=== PATIENT | female | born 1980 | race Two or more races ===

== ENCOUNTER 2020-10-18 20:56 | Emergency (ER) | payer OTHER, SELFPAY ==
--- NOTE | 2020-10-18 21:11 | ED.OVERDOSE ---
HPI - Overdose General Chief Complaint: ETOH/Substance Use Stated Complaint: OVERDOSE Time Seen by Provider: 10/18/20 21:11 Source: patient Mode of arrival: EMS Limitations: no limitations History of Present Illness HPI Narrative: Patient snorted 2 bags of heroine to get high, had been sober for 4 years. found her in the kitchen unresponsive. Police gave her 4mg of narcan. Patient now vomiting and shaking. MD complaint: accidental overdose Onset (ago): minute(s) Timing confirmed by: spouse Intent: other (wanted to get high) Context: Accidental Overdose: wanted to get high Treatments Prior to Arrival: narcan Related Data Previous Rx's Medication Instructions Recorded escitalopram oxalate 20 mg tablet 20 mg PO DAILY 90 Days #90 tab 06/28/20 Allergies Allergy/AdvReac Type Severity Reaction Status Date / Time bee pollen [BEE STINGS] Allergy Unknown HIVES Unverified 04/27/20 17:02 Review of Systems Constitutional: Constitutional: Reports no additional constitutional complaints Eyes: Eyes: Reports no additional eye complaints ENT: Denies dizziness Cardiovascular: Cardiovascular: Reports no additional cardiovascular complaints Respiratory: Respiratory: Reports as per HPI Gastrointestinal: Gastrointestinal: Reports no additional gastrointestinal complaints Genitourinary: Genitourinary: Reports no additional female genitourinary complaints Musculoskeletal: Musculoskeletal: Reports no additional musculoskeletal complaints Integumentary/Breasts: Skin/Breast: Denies rash Neurologic: Reports system reviewed and no additional complaints, except as documented, Denies dizziness and Denies Sensory deficit (Neuro) Psychiatric: Psychiatric: Denies anxiety PMFSH Social History Social History Advance Directives: No Advance Directives Information Provided: Yes Physical Exam Vital Signs: Vital Signs: Last Vital Signs Temp 97.6 F 10/18/20 22:02 Pulse 98 10/18/20 22:02 Resp 15 10/18/20 22:02 BP 158/121 H 10/18/20 22:02 Pulse Ox 97 10/18/20 22:02 Body Mass Index 28.3 Const: General: healthy appearing Nutritional Appearance: average body habitus Orientation/consciousness: oriented to person and patient oriented x3 Limitations: no limitations HENMT: Head: Yes normal to inspection Ears: external ears normal General nose exam: Normal external nose present Mouth: Normal oral and palatal mucosa present and oropharynx normal Throat: Yes posterior oropharynx normal Eyes: General: appearance normal, both eyes and all related structures Neck: Other: supple Neck: Yes normal visual inspection Chest: Chest palpation & inspection: normal inspection of the chest Resp: Auscultation: clear to auscultation bilaterally Cardio: Jugular venous distension: no JVD Rate: regular rate Rhythm: regular rhythm Heart sounds: S1 normal heart sound present and S2 normal heart sound present GI: Inspection: Yes normal to inspection Palpation (GI): Soft to palpation, nontender and No hepatosplenomegaly present Auscultation: normal bowel sounds : General: Yes no CVA tenderness Back/Spine/Pelvis: Back: no CVA tenderness Skin: General skin exam: no rashes or lesions noted Neuro: General: oriented to person and patient oriented x3 Cranial nerves: Yes CN's II-XII intact bilaterally Motor exam (neuro): 5/5 motor strength present throughout Sensory Exam: No Sensory deficit (Neuro) Extrem: General: Yes normal to inspection Psych: Appearance: grossly normal Course Course Course Narrative: patient observed for over one hour will dc home, not lethargic MDM - Overdose Differential Diagnosis Differential diagnosis: Likely drug overdose Discharge Plan Discharge Clinical Impression: Accidental heroin overdose Qualifiers: Encounter type: initial encounter Qualified Code(s): T40.1X1A - Poisoning by heroin, accidental (unintentional), initial encounter Patient Disposition: Home, Self-Care Instructions: Opioid Safety (ED), Opioid Use Disorder (ED) Prescriptions: No Action escitalopram oxalate 20 mg tablet 20 mg PO DAILY 90 Days Qty: 90 RF: 4 Referrals: Physician,Unknown [Primary Care Provider] - 2 days
[2020-10-18 21:15] VITALS: BP 139/99; BP 146/100; PULSE 113; PULSE 135; RESP 16; TEMP 37.2; O2SAT 99; BMI 28.3
[2020-10-18 22:02] VITALS: BP 158/121; PULSE 98; RESP 15; TEMP 36.4; O2SAT 97
[2020-10-18] MEDS: Ibuprofen 600 MG TABLET PO (22:32)
[2020-10-18 22:34] VITALS: BP 138/97; PULSE 116; RESP 18; O2SAT 97
[2020-10-18 22:55] VITALS: BP 132/94; PULSE 99; RESP 18; O2SAT 99
== END 2020-10-18 23:02 | disposition home or self-care (01) ==
PROVIDERS: Emergency Provider Emergency Medicine
DX: T40.1X1A Poisoning by heroin, accidental (unintentional), initial encounter (principal); R40.4 Transient alteration of awareness; Y92.010 Kitchen of single-family (private) house as the place of occurrence of the external cause
CPT/HCPCS: 99284

== ENCOUNTER 2025-03-21 05:26 | Inpatient (IN) | payer OTHER, SELFPAY ==
[2025-03-21] VITALS (9 sets, daily range): BP systolic 97–124; BP diastolic 51–90; PULSE 61–107; RESP 16–20; TEMP 36.2–36.6; O2SAT 96–100; BMI 26.0; BMI 30.3
--- NOTE | ~2025-03-21 | US_ITS ---
EXAMINATION: US ABDOMEN LIMITED HISTORY: Transaminitis TECHNIQUE: Real-time grayscale ultrasound imaging of the right upper quadrant was performed and images were reviewed. COMPARISON: There are no prior studies available for comparison. FINDINGS: Liver: The right lobe of the liver measures 21.7 cm in size. The left lobe of the liver measures 12.7 cm in size. The liver demonstrates coarsened increased echotexture, consistent with steatosis. No focal mass or intrahepatic biliary ductal dilatation is identified. There is normal hepatopedal flow in the portal vein. Gallbladder and biliary tree: The gallbladder is unremarkable, without evidence of calculi, wall thickening, or pericholecystic fluid. The technologist reports the patient to be focally tender over the gallbladder. The common bile duct is normal in caliber measuring 4 mm. Right Kidney: The right kidney measures 10.4 cm in length. The right kidney is unremarkable, without evidence of masses, hydronephrosis, or calculi. Pancreas: The pancreas is obscured by bowel gas. Abdominal aorta and inferior vena cava: The visualized portions of the abdominal aorta and inferior vena cava are normal in caliber. There is no free fluid in the right upper quadrant. US/US abdomen limited IMPRESSION: 1. Hepatomegaly and hepatic steatosis. 2. The technologist reports that the patient is focally tender over the gallbladder, of uncertain significance. There is no evidence of cholelithiasis or secondary signs of acute cholecystitis. Clinical correlation is recommended. Electronically signed by: Alexx Saavedra MD 03/21/2025 01:28 PM EDT
[2025-03-21 06:35] LABS: MANUAL DIFF FLAG NO
[2025-03-21 06:36] LABS: Hematocrit 38.4 % (37.0-47.0); Hemoglobin 13.7 g/dl (12.0-16.0); Imm Gran Abs Auto 0.02 X10*3/uL (0.00-0.03); Imm Gran Pct Auto 0.6 % (0.0-0.4); Lymphocytes Absolute Auto 0.4 X10*3/uL (1.2-4.9); Mean Corpuscular HGB Conc 35.7 g/dl (31.0-35.0); Mean Corpuscular Hemoglobin 36.4 pg (27.0-33.0); Mean Corpuscular Volume 102.1 fL (80.0-98.0); NRBC Abs Auto 0.000 X10*3/uL (0.0-0.012); NRBC Pct Auto 0.0 /100WBC (0.0-0.2); Platelet Count 182 X10*3/uL (160-400); Red Blood Count 3.76 X10*6/uL (4.20-5.50); White Blood Count 3.2 X10*3/uL (4.8-10.8)
[2025-03-21 06:55] LABS: Alanine Aminotransferase 157 U/L (0-31); Albumin Level 4.3 g/dL (3.5-5.0); Alkaline Phosphatase 113 U/L (39-117); Anion Gap 27 (12-20); Aspartate Amino Transferase 498 U/L (5-31); Blood Urea Nitrogen 8 mg/dL (9-16); Calcium 9.0 mg/dL (8.4-10.2); Carbon Dioxide 23 mmol/L (22-29); Chloride 96 mmol/L (96-108); Creatinine Clr Calc Pharmacy 87.9; Estimated Glomerular Filt Rate > 60; Magnesium 1.4 mg/dL (1.6-2.6); Potassium 2.7 mmol/L (3.3-5.1); Sodium 143 mmol/L (135-145); Total Protein 7.6 g/dL (6.5-8.0)
--- NOTE | 2025-03-21 07:05 | ED_ITS ---
HPI - General Adult General Chief complaint: General Medical Stated complaint: Hx: Anxiety Time Seen by Provider: 03/21/25 07:02 Source: patient Limitations: no limitations History of Present Illness HPI narrative: This is 44 years old with a alcohol abuse opiate use disorder presented to the emergency department complaining shakiness numbness in the hands. She has been drinking more than usual because she lost the mother, the last drink was about 2 days ago. Denies any fever chills. Onset (ago): day(s) (1) Radiation: non-radiation Severity: moderate Quality: burning Pain Consistency: constant Relieving factors: none Exacerbating factors: none Associated symptoms: weakness Related Data Home Medications ?Medication ?Instructions ?Recorded ?Confirmed clonidine HCl 0.3 mg tablet 0.3 mg PO BEDTIME PRN Gene ral 03/21/25 03/21/25 Anxiety dextroamphetamine-amphetamine 20 20 mg PO TID 03/21/25 03/21/25 mg tablet ferrous sulfate 325 mg (65 mg 325 mg PO DAILY 03/21/25 03/21/25 iron) tablet (iron) propranolol 60 mg tablet 60 mg PO BID PRN Social Anxi ety 03/21/25 03/21/25 sertraline 100 mg tablet 100 mg PO DAILY 03/21/2507/05 topiramate 200 mg tablet 200 mg PO DAILY PRN weight l oss 03/21/25 03/21/25 Allergies Allergy/AdvReac Type Severity Reaction Status Date / Time bee pollen (BEE STINGS) Allergy Unknown HIVES Verified 03/21/25 06:14 Review of Systems 2 Constitutional: Constitutional: Reports fatigue, Reports lethargy and Reports malaise Musculoskeletal: Musculoskeletal: Reports tingling Neurologic: Reports burning sensations, Reports tingling and Reports paresthesias Endocrine: Endocrine: Reports fatigue [facility] Past Medical History [facility] Narrative: Polysubstance abuse, alcohol abuse Medical History (Updated 03/21/25 @ 10:06 by VINICIO Zeng) Depression Anxiety ADHD Family History Family History Mother No problems noted. Father No problems noted. Social History Social History Alcohol intake: never Cigarettes Per Day: 5 Smoked in Last 30 Days: Yes Use of substances other than those prescribed or required for medical reasons: Yes Substance Use Type: Marijuana Advance Directives: No Advance Directives Information Provided: No Patient : No Physical Exam ED Exam Exam: Tremulous and mild distress Vital Signs: Vital Signs - 24 hr 03/21/25 06:13 03/21/25 06:14 03/21/25 07:47 Temperature 97.9 F 97.9 F Pulse Rate 107 H 107 H 106 H Respiratory Rate 20 20 16 Blood Pressure 120/90 H 120/90 H 120/80 Pulse Oximetry 100 100 98 Oxygen Delivery Method Room Air Room Air Room Air BMI result Body Mass Index 26.0 Const General: cooperative Nutritional Appearance: average body habitus Orientation/consciousness: oriented to time HENMT Head: Yes normal to inspection General nose exam: Normal external nose present Face and sinus: Yes normal facial exam Mouth: Normal oral and palatal mucosa present Throat: Yes posterior oropharynx normal Neck Neck: Yes normal visual inspection Chest Chest palpation & inspection: normal inspection of the chest Resp Effort & Inspection: normal respiratory effort Cardio Jugular venous distension: no JVD Rate: regular rate Rhythm: regular rhythm GI Inspection: Yes normal to inspection Palpation (GI): Soft to palpation Auscultation: normal bowel sounds Skin General skin exam: no rashes or lesions noted Rashes: no rashes Wounds: no wounds Neuro General: oriented to time Cranial nerves: Yes CN's II-XII intact bilaterally Gait exam (Neuro): Normal gait present Course Reevaluation(s) Reevaluation #1: FEELING BETTER DISCUSSED THE CASE WITH THE HOSPITALIST STILL A BIT TACHYCARDIC Time: 10:11 Medications Administered Generic Name Dose Route Start Last Admin Trade Name Faustinoq PRN Reason Stop Dose Admin Enoxaparin Sodium 40 mg 03/21/25 11:00 03/21/25 10:38 Enoxaparin Sodium 40 Mg/0.4 Ml Syringe SUBCUT 40 mg Q24H EZEQUIEL Administration Folic Acid 1 mg 03/21/25 10:05 03/21/25 10:37 Folic Acid 1 Mg Tablet PO 03/24/25 10:04 1 mg DAILY EZEQUIEL Administration Potassium Chloride/Sodium Chloride 20 meq in 1,000 mls @ 150 mls/hr 03/21/25 09:00 03/21/25 09:46 Kcl 20 Meq In 0.9 % Sodium Chl IVCONT 150 mls/hr .Q6H40M EZEQUIEL Administration Multivitamins/Vitamin C 1 tab 03/21/25 10:05 03/21/25 10:37 Multivitamin Tablet PO 03/24/25 10:04 1 tab DAILY EZEQUIEL Administration Pantoprazole Sodium 40 mg 03/21/25 10:00 03/21/25 10:38 Pantoprazole Sodium 40 Mg/10 Ml Vial IVPUSH 03/22/25 09:59 40 mg BID@0630,1630 EZEQUIEL Administration Thiamine HCl 100 mg 03/21/25 10:05 03/21/25 10:37 Thiamine Hcl 100 Mg Tablet PO 03/24/25 10:04 100 mg DAILY EZEQUIEL Administration Discontinued Medications Generic Name Dose Route Start Last Admin Trade Name Freq PRN Reason Stop Dose Admin Diazepam 5 mg 03/21/25 07:04 03/21/25 07:39 Diazepam 10 Mg/2 Ml Cartridge IVPUSH 03/21/25 07:05 5 mg STAT STA Administration Magnesium Sulfate 2 gm in 50 mls @ 25 mls/hr 03/21/25 07:03 03/21/25 09:29 Magnesium Sulfate/H2o IV 03/21/25 09:02 Infused ONCE ONE Infusion Lactated Ringer's 1,000 mls @ 999 mls/hr 03/21/25 07:15 03/21/25 09:29 Lr IV 03/21/25 08:15 Infused .Q1H1M EZEQUIEL Infusion Ondansetron HCl 4 mg 03/21/25 08:58 03/21/25 09:45 Ondansetron Hcl 4 Mg/2 Ml Vial IVPUSH 03/21/25 08:59 4 mg ONCE ONE Administration Phenobarbital Sodium 228 mg 03/21/25 10:00 03/21/25 09:53 Phenobarbital Sodium 130 Mg/Ml Im Once IM 03/21/25 10:01 228 mg ONCE ONE Administration Potassium Chloride 40 meq 03/21/25 07:04 03/21/25 07:42 Potassium Chloride Packet 20 Meq Packet PO 03/21/25 07:05 40 meq ONCE ONE Administration Potassium Chloride 40 meq 03/21/25 08:29 03/21/25 08:35 Potassium Chloride Packet 20 Meq Packet PO 03/21/25 08:30 40 meq ONCE ONE Administration Medical Decision Making Medical Decision Making MDM Narrative: Patient is here with tremors in the hands tingling suspect alcohol withdrawal syndrome we will administer IV fluid in the benzodiazepine Differential Diagnosis Differential Diagnoses: The differential diagnosis associated with the presentation includes Alcohol withdrawal/viral syndrome/dehydration Admission/Observation Consideration of admission/observation: Escalation of care including admission/observation considered Lab Data MDM Lab Attestation statement: I reviewed the patient's lab results. 03/21/25 06:30 03/21/25 06:30 Labs: Lab Results 03/21/25 03/21/25 Range/Units 06:30 08:37 WBC 3.2 L (4.8-10.8) X10*3/uL RBC 3.76 L (4.20-5.50) X10*6/uL Hgb 13.7 (12.0-16.0) g/dl Hct 38.4 (37.0-47.0) % MCV 102.1 H (80.0-98.0) fL MCH 36.4 H (27.0-33.0) pg MCHC 35.7 H (31.0-35.0) g/dl RDW 14.8 (11.0-16.0) % Plt Count 182 (160-400) X10*3/uL MPV 9.9 (9.4-12.3) fL Immature Gran % (Auto) 0.6 H (0.0-0.4) % Neut % (Auto) 77.1 H (45-73) % Lymph % (Auto) 13.0 L (20-40) % [place] % (Auto) 9.0 (2-11) % Eos % (Auto) 0.0 (0-4) % Baso % (Auto) 0.3 (0-2) % Lymph # (Auto) 0.4 L (1.2-4.9) X10*3/uL [place] # (Auto) 0.3 (0.1-1.2) X10*3/uL Eos # (Auto) 0.0 (0.0-0.4) X10*3/uL Baso # (Auto) 0.0 (0.0-0.2) X10*3/uL Abs Immat Gran (auto) 0.02 (0.00-0.03) X10*3/uL Absolute Neuts (auto) 2.5 (2.0-8.3) x10*3/uL Absolute Nucleated RBC 0.000 (0.0-0.012) X10*3/uL Nucleated RBC % (auto) 0.0 (0.0-0.2) /100WBC Sodium 143 (135-145) mmol/L Potassium 2.7 L* (3.3-5.1) mmol/L Chloride 96 (96-108) mmol/L Carbon Dioxide 23 (22-29) mmol/L Anion Gap 27 H (12-20) BUN 8 L (9-16) mg/dL Creatinine 0.79 (0.5-1.4) mg/dL Estim Creat Clear Calc 87.9 Estimated GFR > 60 Random Glucose 105 (60-115) mg/dL Calcium 9.0 (8.4-10.2) mg/dL Magnesium 1.4 L* (1.6-2.6) mg/dL Total Bilirubin 2.1 H (0.0-1.0) mg/dL AST 498 H (5-31) U/L ALT 157 H (0-31) U/L Alkaline Phosphatase 113 (39-117) U/L Total Protein 7.6 (6.5-8.0) g/dL Albumin 4.3 (3.5-5.0) g/dL Urine Opiates Screen Not Detected (Not Detect) Ur Buprenorphine Scrn Not Detected (Not Detect) ng/mL Ur Oxycodone Screen Not Detected (Not Detect) ng/mL Urine Methadone Screen Not Detected (Not Detect) ng/mL Urine Fentanyl Screen Not Detected (Not Detect) Ur Barbiturates Screen Not Detected (Not Detect) Ur Phencyclidine Scrn Not Detected (Not Detect) Ur Amphetamines Screen Not Detected (Not Detect) U Benzodiazepines Scrn Not Detected (Not Detect) Urine Cocaine Screen Not Detected (Not Detect) U Marijuana (THC) Screen POSITIVE H (Not Detect) Ethyl Alcohol 15 mg/dL Critical Care Time Critical Care Time Critical Care Time: Yes Total Critical Care Time: 60 Attestation: IV magnesium, phenobarbital IV diazepam for alcohol withdrawal syndrome with hypomagnesemia hypo kalemia anion gap acidosis Discharge Plan Discharge Clinical Impression: Hypomagnesemia, Acute hypokalemia, High anion gap Alcohol withdrawal Qualifiers: Complication of substance-induced condition: uncomplicated Qualified Code(s): F - Alcohol use, unspecified with withdrawal, uncomplicated Patient Disposition: Admitted As Inpatient
[2025-03-21] MEDS: diazePAM 10 MG/2 ML CARTRIDGE 5 MG IVPUSH (07:39)
[2025-03-21] MEDS: Potassium Chloride Packet 20 MEQ PACKET 40 MEQ PO ×2 (07:42→08:35)
[2025-03-21] MEDS: Lactated Ringers 1,000 ML 999 ML IV (07:42)
[2025-03-21] MEDS: Magnesium Sulfate/H2O 2 GM/50 ML PIGGYBACK IV (07:42)
[2025-03-21 09:06] LABS: Cannabinoid Screen Urine POSITIVE (Not Detect)
--- NOTE | 2025-03-21 09:20 | P.HPHOSP_ITS ---
History of Present Illness Date of Service: 03/21/25 Attending physician on admission: Luis Alberto Cordero Chief Complaint: Clenched fists Pt is a 44-year-old female with a PMH significant for alcohol use disorder, anxiety, and depression?who presents to the ED with?clenched fists and muscle aches and numbness. Pt reports she was awoken at 05:00 this morning and found that her hands were clenched and she was unable to open them. Also experienced numbness and tingling in both extremities, increased anxiety, all-over muscle cramps, tremors, and diaphoresis. Some nausea and vomiting, no significant abdominal pains. Denies tonic-clonic seizure-type activity. Pt reports she has been drinking heavily for the past few months due to life stressors including the passing of her mother two weeks ago. Has been drinking from morning to night. Abruptly stopped drinking Friday night. Denies hx of alcohol withdrawal. No auditory visual hallucinations, or tactile disturbances. Reports feels overall weak. No chest pain/pressure. Denies shortness or breath or difficulty breathing. In the ED pt was tachycardic up to 107, vitals otherwise stable. Labs were significant for potassium 2.7, anion gap 27, magnesium 1.4 bilirubin 2.1, AST 498, and ALT 157. Ethyl alcohol level 15. Pt was treated in the ED with diazepam, Mag sulfate, IVF, potassium chloride, and started on phenobarb protocol. Pt is admitted to the hospital for treatment and further evaluation of electrolyte abnormalities in the setting of acute alcohol withdrawal. Review of Systems 2 Review of Systems: Negative except for that which is stated in the HPI. [facility] Medical History (Updated 03/21/25 @ 10:06 by VINICIO Zeng) Depression Anxiety ADHD Family History Mother No problems noted. Father No problems noted. Social History Alcohol intake: never Cigarettes Per Day: 5 Smoked in Last 30 Days: Yes Use of substances other than those prescribed or required for medical reasons: Yes Substance Use Type: Marijuana Advance Directives: No Advance Directives Information Provided: No Patient : No Meds Allergies Allergy/AdvReac Type Severity Reaction Status Date / Time bee pollen (BEE STINGS) Allergy Unknown HIVES Verified 03/21/25 06:14 Active Medications: Current Medications Potassium Chloride/Sodium Chloride (Kcl 20 Meq In 0.9 % Sodium Chl) 20 meq in 1,000 mls @ 150 mls/hr IVCONT .Q6H40M [facility] Pharmacy Consult (Consult Rx Etoh Phenob Im/Po) 1 each MISCELLANE ONCE PRN; Protocol PRN Reason: Consult order Physical Exam 2 Vital Signs and Narrative: Vital Signs: Last Vital Signs Temp 97.9 F 03/21/25 06:14 Pulse 106 H 03/21/25 07:47 Resp 16 03/21/25 07:47 BP 120/80 03/21/25 07:47 Pulse Ox 98 03/21/25 07:47 O2 Del Method Room Air 03/21/25 07:47 BMI result Body Mass Index 26.0 General: AOx3, no acute distress Resp: CTA bilaterally CVS: S1, S2, RRR GI: +BS, NT, no distention Skin: Warm, dry Neuro: Cranial nerves II-XII grossly intact bilaterally. Motor grossly intact bilaterally. Reduced sensation to light touch bilaterally of upper and lower extremities. Symmetric upper and lower extremity strength. Moderate upper extremity tremors. Extremities: No edema Psych: Mildly anxious Results Labs 03/21/25 06:30 03/21/25 06:30 Labs: Laboratory Results - last 24 hr 03/21/25 03/21/25 06:30 08:37 MCV 102.1 H MCH 36.4 H MCHC 35.7 H RDW 14.8 Plt Count 182 MPV 9.9 Immature Gran % (Auto) 0.6 H Neut % (Auto) 77.1 H Lymph % (Auto) 13.0 L [place] % (Auto) 9.0 Eos % (Auto) 0.0 Baso % (Auto) 0.3 Lymph # (Auto) 0.4 L [place] # (Auto) 0.3 Eos # (Auto) 0.0 Baso # (Auto) 0.0 Abs Immat Gran (auto) 0.02 Absolute Neuts (auto) 2.5 Absolute Nucleated RBC 0.000 Nucleated RBC % (auto) 0.0 Anion Gap 27 H Estim Creat Clear Calc 87.9 Estimated GFR > 60 Random Glucose 105 Calcium 9.0 Magnesium 1.4 L* Total Bilirubin 2.1 H AST 498 H ALT 157 H Alkaline Phosphatase 113 Total Protein 7.6 Albumin 4.3 Urine Opiates Screen Not Detected Ur Buprenorphine Scrn Not Detected Ur Oxycodone Screen Not Detected Urine Methadone Screen Not Detected Urine Fentanyl Screen Not Detected Ur Barbiturates Screen Not Detected Ur Phencyclidine Scrn Not Detected Ur Amphetamines Screen Not Detected U Benzodiazepines Scrn Not Detected Urine Cocaine Screen Not Detected U Marijuana (THC) Screen POSITIVE H Ethyl Alcohol 15 Assessment and Plan (1) Alcohol withdrawal: Qualifiers: Complication of substance-induced condition: uncomplicated Qualified Code(s): F10.930 - Alcohol use, unspecified with withdrawal, uncomplicated Status: Acute (2) Hypomagnesemia: Status: Acute (3) Acute hypokalemia: Status: Acute Plan Pt is a 44-year-old female with a PMH significant for alcohol use disorder, anxiety, and depression?who presents to the ED with?clenched fists and muscle aches and numbness. Pt is admitted to the hospital for treatment and further evaluation of electrolyte abnormalities in the setting of acute alcohol withdrawal. Acute alcohol withdrawal Pt drinking heavily morning to night for past few months; last drink 36 hours ago; no hx of withdrawal Complains of muscle aches/cramps, clentched fists, numbness and tingling in extremities Continue Phenobarb protocol Daily multivitamin, folic acid, thiamine, omerprazole Follow Mag kyaw, BMP CIWA scale Addiction medicine consult Monitor on telemetry Hypokalemia Potassium 2.7 Pt with N/V in the setting of AUD Supplemented with IV and p.o. in the ED Monitor, supplement as necessary Hypomagnesmia Magnesium 1.4 Supplemented magnesium 2 g IV in the ED Follow mag, supplement as necessary Transaminitis T bili 2.1, AST 498, ALT 157 In the setting of alcohol use disorder Will get RUQ US Treat as above ADHD Continue Ritalin Mood disorder Continue escitalopram Full Code Attending:?Dr. cordero DVT Prophylaxis: Lovenox Pt will require a hospitalization of at least two nights for treatment of?electrolyte abnormalities in setting of acute alcohol withdrawal requiring phenobarb protocol and close monitoring of labs and cardiac function. Quality Stroke Does the patient have a stroke diagnosis?: No VTE Prior VTE?: No VTE Risk Level:: Medical - moderate - high VTE Device Contraindication: Treatment Not Indicated VTE Drug Contraindication: N/A - Med Ordered
[2025-03-21] MEDS: KCl 20 mEq in 0.9 % Sodium ChL 20 MEQ/1,000 ML IV.SOLN 150 MEQ IVCONT ×2 (09:46→16:28)
[2025-03-21] MEDS: PHENobarbitaL sodium 130 MG/ML IM ONCE 228 MG IM (09:53)
--- NOTE | 2025-03-21 12:04 | PHA.MEDREC ---
Addendum entered by Monique Yang RPh 03/21/25 12:23: MED REC REVIEWED BY [facility] Original Note: Pharmacy Consult ? Medication Reconciliation Pharmacy has completed the medication reconciliation. Spoke with pt and she was able to confirm her medications. Pt taking her Clonidine as needed for general anxiety, Propanolol as needed for social anxiety and Topiramate as needed for weight loss.
[2025-03-21] MEDS: PHENobarbitaL sodium 130 MG/ML VIAL IM Q3Hx2 171 MG IM ×2 (13:26→16:30)
[2025-03-21 14:50] LABS: Magnesium 1.9 mg/dL (1.6-2.6)
[2025-03-21 14:51] LABS: Anion Gap 17 (12-20); Blood Urea Nitrogen 6 mg/dL (9-16); Calcium 8.4 mg/dL (8.4-10.2); Carbon Dioxide 28 mmol/L (22-29); Chloride 100 mmol/L (96-108); Creatinine Clr Calc Pharmacy 102.1; Estimated Glomerular Filt Rate > 60; Magnesium 1.9 mg/dL (1.6-2.6); Potassium 3.8 mmol/L (3.3-5.1); Sodium 141 mmol/L (135-145)
[2025-03-21] MEDS: Amphetamine Mixed Salts 20 MG TABLET PO (18:15)
[2025-03-21] MEDS: 0.9 % Sodium Chloride Flush 3 ML SYRINGE IVFLUSH (19:48)
[2025-03-22] VITALS (9 sets, daily range): BP systolic 90–138; BP diastolic 60–87; PULSE 60–86; RESP 16–19; TEMP 36.1–36.7; O2SAT 97–100
[2025-03-22] MEDS: KCl 20 mEq in 0.9 % Sodium ChL 20 MEQ/1,000 ML IV.SOLN 150 MEQ IVCONT (01:46)
--- NOTE | 2025-03-22 01:51 | PC.NURSE ---
Pt c/o generalized anxiety. Requesting PRN Clodinine. BP 108/67. 0.3mg Clonidine administered. Effectiveness pending.
[2025-03-22 06:58] LABS: Alanine Aminotransferase 118 U/L (0-31); Albumin Level 3.1 g/dL (3.5-5.0); Alkaline Phosphatase 79 U/L (39-117); Anion Gap 11 (12-20); Aspartate Amino Transferase 381 U/L (5-31); Blood Urea Nitrogen 6 mg/dL (9-16); Calcium 7.6 mg/dL (8.4-10.2); Carbon Dioxide 21 mmol/L (22-29); Chloride 109 mmol/L (96-108); Creatinine Clr Calc Pharmacy 99.4; Estimated Glomerular Filt Rate > 60; Potassium 4.1 mmol/L (3.3-5.1); Sodium 137 mmol/L (135-145); Total Protein 5.5 g/dL (6.5-8.0)
[2025-03-22 07:04] LABS: Hematocrit 32.2 % (37.0-47.0); Hemoglobin 10.8 g/dl (12.0-16.0); Mean Corpuscular HGB Conc 33.5 g/dl (31.0-35.0); Mean Corpuscular Hemoglobin 35.8 pg (27.0-33.0); Mean Corpuscular Volume 106.6 fL (80.0-98.0); NRBC Abs Auto 0.020 X10*3/uL (0.0-0.012); NRBC Pct Auto 0.7 /100WBC (0.0-0.2); Platelet Count 152 X10*3/uL (160-400); Red Blood Count 3.02 X10*6/uL (4.20-5.50); White Blood Count 2.9 X10*3/uL (4.8-10.8)
--- NOTE | 2025-03-22 09:13 | MHC.CM.PN ---
Pt lives with her significant other and her 2 children. HCP discussed, she declined to complete form at this time. She does not use home care services or DME. She can arrange a ride home at [place]. DCP: home, self care. CM to follow for DC needs.
[2025-03-22] MEDS: Ferrous Sulfate 324 MG TABLET.DR PO (09:46)
[2025-03-22] MEDS: Amphetamine Mixed Salts 20 MG TABLET PO ×3 (09:47→21:22)
[2025-03-22] MEDS: 0.9 % Sodium Chloride Flush 3 ML SYRINGE IVFLUSH ×2 (09:51→23:03)
[2025-03-22] MEDS: Lactated Ringers 500 ML 999 ML IV (10:19)
--- NOTE | 2025-03-22 10:35 | P.PNIM_ITS ---
Subjective Subjective Date of Service: 03/22/25 Interval History: Feeling overall better Sensation returned in right hand and both feet Still some numbness in right upper extremity and difficulty moving fingers Feels anxious Some SOB Review of Systems Review of Systems: Yes all other systems are reviewed and are negative Physical Exam 2 Exam: Exam: General: AOx3, no acute distress Resp: CTA bilaterally CVS: S1, S2, RRR GI: +BS, NT, no distention Skin: Warm, dry Neuro: Cranial nerves II-XII grossly intact bilaterally. Motor grossly intact bilaterally. Mild upper extremity tremors. Reduced sensation to light touch to right upper extremity. Extremities: No edema Psych: Mildly anxious Vital Signs: Vital Signs: Last Vital Signs Temp 97.6 F 03/22/25 07:16 Pulse 62 03/22/25 07:16 Resp 19 03/22/25 07:16 BP 92/68 03/22/25 08:30 Pulse Ox 99 03/22/25 07:16 O2 Del Method Room Air 03/22/25 07:16 BMI result Body Mass Index 30.3 Objective Data Active Medications Acetaminophen (Acetaminophen 325 Mg Tablet) 650 mg PO Q6H PRN PRN Reason: Pain, Mild 1-3,fever,headache Last Admin: 03/22/25 09:53 Dose: 650 mg Documented By: ELSY Albuterol/Ipratropium (Albuterol/Iprat 2.5/0.5mg 3 Ml Ampul.Neb) 3 ml INHALE ONCE ONE Stop: 03/22/25 10:35 Amphetamine/Dextroamphetamine (Amphetamine Mixed Salts 20 Mg Tablet) 20 mg PO TID [facility] Last Admin: 03/22/25 09:47 Dose: 20 mg Documented By: ELSY Artificial Tears (Artificial Tears 15 Ml Drops) 2 drop EYE-BOTH Q4H PRN PRN Reason: Dry Eyes Calcium Carbonate (Calcium Carbonate 750 Mg Tab.Chew) 750 mg PO Q4H PRN PRN Reason: Heartburn Clonidine HCl (Clonidine Hcl 0.1 Mg Tablet) 0.3 mg PO BEDTIME PRN; Protocol PRN Reason: General Anxiety Last Admin: 03/22/25 01:47 Dose: 0.3 mg Documented By: MELINA Enoxaparin Sodium (Enoxaparin Sodium 40 Mg/0.4 Ml Syringe) 40 mg SUBCUT Q24H [facility] Last Admin: 03/21/25 10:38 Dose: 40 mg Documented By: NICK Ferrous Sulfate (Ferrous Sulfate 324 Mg Tablet.) 324 mg PO DAILY [facility] Last Admin: 03/22/25 09:46 Dose: 324 mg Documented By: ELSY Folic Acid (Folic Acid 1 Mg Tablet) 1 mg PO DAILY [facility] Stop: 03/24/25 10:04 Last Admin: 03/22/25 09:47 Dose: 1 mg Documented By: ELSY Lactated Ringer's (Lr) 500 mls @ 999 mls/hr IV .Q31M [facility] Stop: 03/22/25 10:45 Last Admin: 03/22/25 10:19 Dose: 999 mls/hr Documented By: ELSY Magnesium Hydroxide (Milk Of Magnesia 30 Ml Oral.Susp) 30 ml PO DAILY PRN PRN Reason: Constipation Multivitamins/Vitamin C (Multivitamin Tablet) 1 tab PO DAILY [facility] Stop: 03/24/25 10:04 Last Admin: 03/22/25 09:46 Dose: 1 tab Documented By: ELSY Omeprazole (Omeprazole 40 Mg Capsule.) 40 mg PO DAILY@0630 [facility] Last Admin: 03/22/25 06:26 Dose: 40 mg Documented By: SERENITY Pharmacy Consult (Consult Rx Etoh Phenob Im/Po) 1 each MISCELLANE ONCE PRN; Protocol PRN Reason: Consult order Phenobarbital (Phenobarbital 15 Mg Tablet) 45 mg PO BID [facility] Stop: 03/23/25 09:01 Last Admin: 03/22/25 09:47 Dose: 45 mg Documented By: ELSY Phenobarbital (Phenobarbital 15 Mg Tablet) 15 mg PO BID [facility] Stop: 03/25/25 09:01 Phenobarbital (Phenobarbital 15 Mg Tablet) 15 mg PO DAILY [facility] Stop: 03/27/25 09:01 Propranolol HCl (Propranolol Hcl 20 Mg Tablet) 60 mg PO BID PRN; Protocol PRN Reason: Social Anxiety Sertraline HCl (Sertraline Hcl 100 Mg Tablet) 100 mg PO DAILY [facility] Last Admin: 03/22/25 09:47 Dose: 100 mg Documented By: ELSY Sodium Chloride (0.9 % Sodium Chloride Flush 3 Ml Syringe) 3 ml IVFLUSH QSHIFT [facility] Last Admin: 03/22/25 09:51 Dose: 3 ml Documented By: ELSY Thiamine HCl (Thiamine Hcl 100 Mg Tablet) 100 mg PO DAILY [facility] Stop: 03/24/25 10:04 Last Admin: 03/22/25 09:47 Dose: 100 mg Documented By: ELSY Topiramate (Topiramate 100 Mg Tablet) 200 mg PO DAILY PRN PRN Reason: weight loss Labs 03/22/25 06:16 03/22/25 06:16 Labs: Laboratory Results - last 24 hr 03/21/25 03/21/25 03/21/25 14:29 14:29 14:29 MCV MCH MCHC RDW Plt Count MPV Absolute Nucleated RBC Nucleated RBC % (auto) Anion Gap Cancelled 17 Estim Creat Clear Calc Cancelled 102.1 Estimated GFR Cancelled Random Glucose Calcium Magnesium Total Bilirubin AST ALT Alkaline Phosphatase Total Protein Albumin 03/21/25 03/21/25 03/21/25 14:29 14:29 14:29 MCV MCH MCHC RDW Plt Count MPV Absolute Nucleated RBC Nucleated RBC % (auto) Anion Gap Estim Creat Clear Calc Estimated GFR > 60 Random Glucose Cancelled 90 Calcium Cancelled 8.4 D Magnesium 1.9 Total Bilirubin AST ALT Alkaline Phosphatase Total Protein Albumin 03/21/25 03/22/25 14:29 06:16 MCV 106.6 H MCH 35.8 H MCHC 33.5 RDW 14.6 Plt Count 152 L MPV 10.9 Absolute Nucleated RBC 0.020 H Nucleated RBC % (auto) 0.7 H Anion Gap 11 L Estim Creat Clear Calc 99.4 Estimated GFR > 60 Random Glucose 153 H Calcium 7.6 L D Magnesium 1.9 Total Bilirubin 1.3 H AST 381 H ALT 118 H Alkaline Phosphatase 79 Total Protein 5.5 L Albumin 3.1 L Assessment and Plan (1) Alcohol withdrawal: Status: Acute Plan Pt is a 44-year-old female with a PMH significant for alcohol use disorder, anxiety, and depression?who presents to the ED with?clenched fists and muscle aches and numbness. Pt is admitted to the hospital for treatment and further evaluation of electrolyte abnormalities in the setting of acute alcohol withdrawal. Acute alcohol withdrawal Pt drinking heavily morning to night for past few months; last drink 36 hours ago; no hx of withdrawal Experienced muscle aches/cramps, clentched fists, numbness and tingling in extremities Continue Phenobarb protocol Daily multivitamin, folic acid, thiamine, omerprazole Follow lytes, Mag, BMP CIWA scale Addiction medicine consult Monitor on telemetry Right upper extremity numbness/tingling Since yesterday morning; hand no longer clentched but reports continued lack of coordination Neurology consult Hypokalemia, resovled Pt with N/V in the setting of AUD Supplemented with IV and p.o. in the ED Monitor, supplement as necessary Hypomagnesmia, resolved Magnesium 1.4, repeat 1.9 Supplemented magnesium 2 g IV in the ED Follow mag, supplement as necessary Transaminitis Improving In the setting of alcohol use disorder RUQ US showing hepatomegaly and hepatic steatosis without evidence of cholelithiasis or acute cholecystitis Treat as above ADHD Continue Ritalin Mood disorder Continue escitalopram Full Code Attending:?Dr. cordero DVT Prophylaxis: Lovenox Pt requires continued hospitalization for treatment of acute alcohol withdrawal with sensory changes. Quality Stroke Does the patient have a stroke diagnosis?: No VTE Prior VTE?: No VTE Risk Level:: Medical - moderate - high VTE Device Contraindication: Treatment Not Indicated VTE Drug Contraindication: N/A - Med Ordered
[2025-03-22] MEDS: Albuterol/Iprat 2.5/0.5MG 3 ML AMPUL.NEB INHALE (11:23)
--- NOTE | 2025-03-22 12:17 | P.CNNE_ITS ---
History of Present Illness Data of Consult Service Date: 03/22/25 Primary Care Provider: Marco Allison MD [facility] Reason for consult: Right hand numbness and difficulty grasping This is a 44-year-old female with a h/o alcohol use disorder, anxiety, and depression?who presented to the ED with?clenched fists and muscle aches and numbness. Pt reports she was awoken at 05:00 this morning and found that her hands were clenched and she was unable to open them. Also experienced numbness and tingling in both extremities, increased anxiety, all-over muscle cramps, tremors, and diaphoresis. Some nausea and vomiting, no significant abdominal pains. Denies tonic-clonic seizure-type activity. Pt reports she has been drinking heavily for the past few months due to life stressors including the passing of her mother two weeks ago. Has been drinking from morning to night. Abruptly stopped drinking Friday night. Denies hx of alcohol withdrawal. No auditory visual hallucinations, or tactile disturbances. Reports feels overall weak. No chest pain/pressure. Denies shortness or breath or difficulty breathing. In the ED pt was tachycardic up to 107, vitals otherwise stable. Labs were significant for potassium 2.7, anion gap 27, magnesium 1.4 bilirubin 2.1, AST 498, and ALT 157. Ethyl alcohol level 15. Pt was treated in the ED with diazepam, Mag sulfate, IVF, potassium chloride, and started on phenobarb protocol. Pt is admitted to the hospital for treatment and further evaluation of electrolyte abnormalities in the setting of acute alcohol withdrawal. She has had numbness in the ulnar border of the right hand and hand weakness for a few months PMFSH Past Medical History Medical History (Updated 03/22/25 @ 16:46 by Melvin Brown MD) Depression Anxiety ADHD Family History Family History Mother No problems noted. Father No problems noted. Social History Social History Household Members: Spouse and Children Housing: House Alcohol intake: never Patient Tobacco Use Status: Current everyday Tobacco user Tobacco use type: Cigarette Cigarette Packs Per Day: 0.5 Cigarettes Per Day: 10.0 e-Cigarette/Vaping Use: Currently Using Substance Use Type: Marijuana Meds Allergies Allergy/AdvReac Type Severity Reaction Status Date / Time bee pollen (BEE STINGS) Allergy Unknown HIVES Verified 03/21/25 06:14 Active Medications: Current Medications Acetaminophen (Acetaminophen 325 Mg Tablet) 650 mg PO Q6H PRN PRN Reason: Pain, Mild 1-3,fever,headache Last Admin: 03/22/25 09:53 Dose: 650 mg Amphetamine/Dextroamphetamine (Amphetamine Mixed Salts 20 Mg Tablet) 20 mg PO TID [facility] Last Admin: 03/22/25 09:47 Dose: 20 mg Artificial Tears (Artificial Tears 15 Ml Drops) 2 drop EYE-BOTH Q4H PRN PRN Reason: Dry Eyes Calcium Carbonate (Calcium Carbonate 750 Mg Tab.Chew) 750 mg PO Q4H PRN PRN Reason: Heartburn Clonidine HCl (Clonidine Hcl 0.1 Mg Tablet) 0.3 mg PO BEDTIME PRN; Protocol PRN Reason: General Anxiety Last Admin: 03/22/25 01:47 Dose: 0.3 mg Enoxaparin Sodium (Enoxaparin Sodium 40 Mg/0.4 Ml Syringe) 40 mg SUBCUT Q24H [facility] Last Admin: 03/21/25 10:38 Dose: 40 mg Ferrous Sulfate (Ferrous Sulfate 324 Mg Tablet.Dr) 324 mg PO DAILY [facility] Last Admin: 03/22/25 09:46 Dose: 324 mg Folic Acid (Folic Acid 1 Mg Tablet) 1 mg PO DAILY [facility] Stop: 03/24/25 10:04 Last Admin: 03/22/25 09:47 Dose: 1 mg Magnesium Hydroxide (Milk Of Magnesia 30 Ml Oral.Susp) 30 ml PO DAILY PRN PRN Reason: Constipation Multivitamins/Vitamin C (Multivitamin Tablet) 1 tab PO DAILY [facility] Stop: 03/24/25 10:04 Last Admin: 03/22/25 09:46 Dose: 1 tab Omeprazole (Omeprazole 40 Mg Capsule.Dr) 40 mg PO DAILY@0630 [facility] Last Admin: 03/22/25 06:26 Dose: 40 mg Pharmacy Consult (Consult Rx Etoh Phenob Im/Po) 1 each MISCELLANE ONCE PRN; Protocol PRN Reason: Consult order Phenobarbital (Phenobarbital 15 Mg Tablet) 45 mg PO BID [facility] Stop: 03/23/25 09:01 Last Admin: 03/22/25 09:47 Dose: 45 mg Phenobarbital (Phenobarbital 15 Mg Tablet) 15 mg PO BID [facility] Stop: 03/25/25 09:01 Phenobarbital (Phenobarbital 15 Mg Tablet) 15 mg PO DAILY [facility] Stop: 03/27/25 09:01 Propranolol HCl (Propranolol Hcl 20 Mg Tablet) 60 mg PO BID PRN; Protocol PRN Reason: Social Anxiety Sertraline HCl (Sertraline Hcl 100 Mg Tablet) 100 mg PO DAILY [facility] Last Admin: 03/22/25 09:47 Dose: 100 mg Sodium Chloride (0.9 % Sodium Chloride Flush 3 Ml Syringe) 3 ml IVFLUSH QSHIFT [facility] Last Admin: 03/22/25 09:51 Dose: 3 ml Thiamine HCl (Thiamine Hcl 100 Mg Tablet) 100 mg PO DAILY [facility] Stop: 03/24/25 10:04 Last Admin: 03/22/25 09:47 Dose: 100 mg Topiramate (Topiramate 100 Mg Tablet) 200 mg PO DAILY PRN PRN Reason: weight loss Home Medications ?Medication ?Instructions ?Recorded ?Confirmed ?Last Taken ?Type clonidine HCl 0.3 mg tablet 0.3 mg PO BEDTIME PRN Gene ral 03/21/25 03/21/25 Unknown History Anxiety dextroamphetamine-amphetamine 20 20 mg PO TID 03/21/25 03/21/25 03/19/25 History mg tablet ferrous sulfate 325 mg (65 mg 325 mg PO DAILY 03/21/25 03/21/25 03/19/25 History iron) tablet (iron) propranolol 60 mg tablet 60 mg PO BID PRN Social Anxi ety 03/21/25 03/21/25 Unknown History sertraline 100 mg tablet 100 mg PO DAILY 03/21/2507/0503/19/25 History topiramate 200 mg tablet 200 mg PO DAILY PRN weight l oss 03/21/25 03/21/25 Unknown History Physical Exam 2 Vital Signs: Vital Signs: Last Vital Signs Temp 97.8 F 03/22/25 11:09 Pulse 77 03/22/25 11:26 Resp 18 03/22/25 11:26 BP 90/64 03/22/25 11:09 Pulse Ox 98 03/22/25 11:09 O2 Del Method Room Air 03/22/25 11:09 BMI result Body Mass Index 30.3 Neuro: Other: She is alert and oriented with a normal neurological examination except for numbness in the ulnar nerve distribution in the right hand and weakness in finger spread and opposition consistent with an ulnar neuropathy Results Labs 03/22/25 06:16 03/22/25 06:16 Labs: Short CBC 03/22/25 Range/Units 06:16 WBC 2.9 L (4.8-10.8) X10*3/uL Hgb 10.8 L D (12.0-16.0) g/dl Hct 32.2 L (37.0-47.0) % Plt Count 152 L (160-400) X10*3/uL BMP 03/21/25 03/21/25 03/21/25 14:29 14:29 14:29 Sodium Cancelled 141 Potassium Cancelled 3.8 D Chloride Cancelled Carbon Dioxide BUN Creatinine Calcium 03/21/25 03/21/25 03/21/25 14:29 14:29 14:29 Sodium Potassium Chloride 100 Carbon Dioxide Cancelled 28 BUN Cancelled 6 L Creatinine Cancelled Calcium 03/21/25 03/21/25 03/22/25 14:29 14:29 06:16 Sodium 137 Potassium 4.1 Chloride 109 H Carbon Dioxide 21 L BUN 6 L Creatinine 0.68 0.75 Calcium Cancelled 8.4 D 7.6 L D Liver Function 03/22/25 Range/Units 06:16 Total Bilirubin 1.3 H (0.0-1.0) mg/dL AST 381 H (5-31) U/L ALT 118 H (0-31) U/L Alkaline Phosphatase 79 (39-117) U/L Albumin 3.1 L (3.5-5.0) g/dL Assessment and Plan (1) Ulnar neuropathy of right upper extremity: Status: Acute Probably due to compression at the elbow. Recommend: Outpatient nerve conduction/ EMG study of the right upper extremity Procedures Date of Service Date of Service: 03/22/25
--- NOTE | 2025-03-22 16:18 | HO.ADDICTCON ---
History of Present Illness Date of Service: 03/22/2025 Chief Complaint: Alcohol Withdrwal Reason for Consult: AUD Sources of Information: patient interviewed and chart reviewed HPI Narrative: Patient is a 44 year old female medically admitted with acute alcohol withdrawal, and electrolyte abnormalities. She reports drinking has increased since September, but for the past several weeks she has been drinking all day . When she presented to the ED, her fists were clenched and she reported that she was unable to open them. Seen in room 485. She is awake, alert, engaged in interview. Pressured speech, verbalizing anxiety and stating that withdrawal sx in btwn pheno doses are not well managed--main sx identified as anxiety and restlessness. Fists are no longer clenched, but she reports ongoing tingling down her arm. She states that she does not feel this was related to drinking. T/w suggested holding Adderall during withdrawal period, however patient became very upset by this suggestion, stating that Adderall allows her to rest . Substance use and treatment history obtained by transporter radiology and reviewed. No other substance use reported, except cannabis. Labs reviewed--Magnesium repleted and now 1.9, K also improved 3.8 LFTs elevated --AST 381 ALT 118 CIWA scores have been low--2's Medical Evaluation Reviewed: Yes Review of Systems Constitutional: Reports as per HPI, Reports body ache(s) and Reports malaise Gastrointestinal: Denies loose stools, Denies nausea and Denies vomiting Musculoskeletal: Reports myalgias and Reports tingling Reports tingling Psychiatric: Reports anxiety Diagnostics Vital Signs (24Hr): Vital Signs - 24 hr 03/21/25 17:44 03/21/25 19:23 03/21/25 19:33 Temperature 97.1 F 97.2 F Pulse Rate 68 74 61 Respiratory Rate 17 20 19 Blood Pressure 97/63 107/67 124/80 Pulse Oximetry 98 98 97 Oxygen Delivery Method Room Air Room Air Room Air 03/21/25 23:07 03/22/25 01:47 03/22/25 03:00 Temperature 97.2 F 97.5 F Pulse Rate 63 65 Respiratory Rate 20 19 Blood Pressure 104/65 108/67 103/65 Pulse Oximetry 96 97 Oxygen Delivery Method Room Air Room Air 03/22/25 07:16 03/22/25 08:30 03/22/25 11:09 Temperature 97.6 F 97.8 F Pulse Rate 62 60 Respiratory Rate 19 18 Blood Pressure 90/60 92/68 90/64 Pulse Oximetry 99 98 Oxygen Delivery Method Room Air Room Air 03/22/25 11:26 03/22/25 15:04 Temperature 97.1 F Pulse Rate 77 76 Respiratory Rate 18 18 Blood Pressure 119/81 Pulse Oximetry 99 Oxygen Delivery Method Room Air BMI result Body Mass Index 30.3 Labs 03/23/25 06:28 03/23/25 06:28 Labs: Laboratory Results - last 48 hr 03/21/25 03/21/25 03/21/25 06:30 08:37 14:29 WBC 3.2 L RBC 3.76 L Hgb 13.7 Hct 38.4 MCV 102.1 H MCH 36.4 H MCHC 35.7 H RDW 14.8 Plt Count 182 MPV 9.9 Immature Gran % (Auto) 0.6 H Neut % (Auto) 77.1 H Lymph % (Auto) 13.0 L [place] % (Auto) 9.0 Eos % (Auto) 0.0 Baso % (Auto) 0.3 Lymph # (Auto) 0.4 L [place] # (Auto) 0.3 Eos # (Auto) 0.0 Baso # (Auto) 0.0 Abs Immat Gran (auto) 0.02 Absolute Neuts (auto) 2.5 Absolute Nucleated RBC 0.000 Nucleated RBC % (auto) 0.0 Sodium 143 Cancelled Potassium 2.7 L* Chloride 96 Carbon Dioxide 23 Anion Gap 27 H BUN 8 L Creatinine 0.79 Estim Creat Clear Calc 87.9 Estimated GFR > 60 Random Glucose 105 Calcium 9.0 Magnesium 1.4 L* Total Bilirubin 2.1 H AST 498 H ALT 157 H Alkaline Phosphatase 113 Total Protein 7.6 Albumin 4.3 Urine Opiates Screen Not Detected Ur Buprenorphine Scrn Not Detected Ur Oxycodone Screen Not Detected Urine Methadone Screen Not Detected Urine Fentanyl Screen Not Detected Ur Barbiturates Screen Not Detected Ur Phencyclidine Scrn Not Detected Ur Amphetamines Screen Not Detected U Benzodiazepines Scrn Not Detected Urine Cocaine Screen Not Detected U Marijuana (THC) Screen POSITIVE H Ethyl Alcohol 15 03/21/25 03/21/25 03/21/25 14:29 14:29 14:29 WBC RBC Hgb Hct MCV MCH MCHC RDW Plt Count MPV Immature Gran % (Auto) Neut % (Auto) Lymph % (Auto) [place] % (Auto) Eos % (Auto) Baso % (Auto) Lymph # (Auto) [place] # (Auto) Eos # (Auto) Baso # (Auto) Abs Immat Gran (auto) Absolute Neuts (auto) Absolute Nucleated RBC Nucleated RBC % (auto) Sodium 141 Potassium Cancelled 3.8 D Chloride Cancelled 100 Carbon Dioxide Cancelled Anion Gap BUN Creatinine Estim Creat Clear Calc Estimated GFR Random Glucose Calcium Magnesium Total Bilirubin AST ALT Alkaline Phosphatase Total Protein Albumin Urine Opiates Screen Ur Buprenorphine Scrn Ur Oxycodone Screen Urine Methadone Screen Urine Fentanyl Screen Ur Barbiturates Screen Ur Phencyclidine Scrn Ur Amphetamines Screen U Benzodiazepines Scrn Urine Cocaine Screen U Marijuana (THC) Screen Ethyl Alcohol 03/21/25 03/21/25 03/21/25 14:29 14:29 14:29 WBC RBC Hgb Hct MCV MCH MCHC RDW Plt Count MPV Immature Gran % (Auto) Neut % (Auto) Lymph % (Auto) [place] % (Auto) Eos % (Auto) Baso % (Auto) Lymph # (Auto) [place] # (Auto) Eos # (Auto) Baso # (Auto) Abs Immat Gran (auto) Absolute Neuts (auto) Absolute Nucleated RBC Nucleated RBC % (auto) Sodium Potassium Chloride Carbon Dioxide 28 Anion Gap Cancelled 17 BUN Cancelled 6 L Creatinine Cancelled Estim Creat Clear Calc Estimated GFR Random Glucose Calcium Magnesium Total Bilirubin AST ALT Alkaline Phosphatase Total Protein Albumin Urine Opiates Screen Ur Buprenorphine Scrn Ur Oxycodone Screen Urine Methadone Screen Urine Fentanyl Screen Ur Barbiturates Screen Ur Phencyclidine Scrn Ur Amphetamines Screen U Benzodiazepines Scrn Urine Cocaine Screen U Marijuana (THC) Screen Ethyl Alcohol 03/21/25 03/21/25 03/21/25 14:29 14:29 14:29 WBC RBC Hgb Hct MCV MCH MCHC RDW Plt Count MPV Immature Gran % (Auto) Neut % (Auto) Lymph % (Auto) [place] % (Auto) Eos % (Auto) Baso % (Auto) Lymph # (Auto) [place] # (Auto) Eos # (Auto) Baso # (Auto) Abs Immat Gran (auto) Absolute Neuts (auto) Absolute Nucleated RBC Nucleated RBC % (auto) Sodium Potassium Chloride Carbon Dioxide Anion Gap BUN Creatinine 0.68 Estim Creat Clear Calc Cancelled 102.1 Estimated GFR Cancelled > 60 Random Glucose Cancelled Calcium Magnesium Total Bilirubin AST ALT Alkaline Phosphatase Total Protein Albumin Urine Opiates Screen Ur Buprenorphine Scrn Ur Oxycodone Screen Urine Methadone Screen Urine Fentanyl Screen Ur Barbiturates Screen Ur Phencyclidine Scrn Ur Amphetamines Screen U Benzodiazepines Scrn Urine Cocaine Screen U Marijuana (THC) Screen Ethyl Alcohol 03/21/25 03/21/25 03/21/25 14:29 14:29 14:29 WBC RBC Hgb Hct MCV MCH MCHC RDW Plt Count MPV Immature Gran % (Auto) Neut % (Auto) Lymph % (Auto) [place] % (Auto) Eos % (Auto) Baso % (Auto) Lymph # (Auto) [place] # (Auto) Eos # (Auto) Baso # (Auto) Abs Immat Gran (auto) Absolute Neuts (auto) Absolute Nucleated RBC Nucleated RBC % (auto) Sodium Potassium Chloride Carbon Dioxide Anion Gap BUN Creatinine Estim Creat Clear Calc Estimated GFR Random Glucose 90 Calcium Cancelled 8.4 D Magnesium 1.9 1.9 Total Bilirubin AST ALT Alkaline Phosphatase Total Protein Albumin Urine Opiates Screen Ur Buprenorphine Scrn Ur Oxycodone Screen Urine Methadone Screen Urine Fentanyl Screen Ur Barbiturates Screen Ur Phencyclidine Scrn Ur Amphetamines Screen U Benzodiazepines Scrn Urine Cocaine Screen U Marijuana (THC) Screen Ethyl Alcohol 03/22/25 06:16 WBC 2.9 L RBC 3.02 L Hgb 10.8 L D Hct 32.2 L MCV 106.6 H MCH 35.8 H MCHC 33.5 RDW 14.6 Plt Count 152 L MPV 10.9 Immature Gran % (Auto) Neut % (Auto) Lymph % (Auto) [place] % (Auto) Eos % (Auto) Baso % (Auto) Lymph # (Auto) [place] # (Auto) Eos # (Auto) Baso # (Auto) Abs Immat Gran (auto) Absolute Neuts (auto) Absolute Nucleated RBC 0.020 H Nucleated RBC % (auto) 0.7 H Sodium 137 Potassium 4.1 Chloride 109 H Carbon Dioxide 21 L Anion Gap 11 L BUN 6 L Creatinine 0.75 Estim Creat Clear Calc 99.4 Estimated GFR > 60 Random Glucose 153 H Calcium 7.6 L D Magnesium Total Bilirubin 1.3 H AST 381 H ALT 118 H Alkaline Phosphatase 79 Total Protein 5.5 L Albumin 3.1 L Urine Opiates Screen Ur Buprenorphine Scrn Ur Oxycodone Screen Urine Methadone Screen Urine Fentanyl Screen Ur Barbiturates Screen Ur Phencyclidine Scrn Ur Amphetamines Screen U Benzodiazepines Scrn Urine Cocaine Screen U Marijuana (THC) Screen Ethyl Alcohol Imaging Radiology Impressions: ITS Impressions Abdomen Ultrasound 03/21/25 12:45 IMPRESSION: 1. Hepatomegaly and hepatic steatosis. 2. The technologist reports that the patient is focally tender over the gallbladder, of uncertain significance. There is no evidence of cholelithiasis or secondary signs of acute cholecystitis. Clinical correlation is recommended. Electronically signed by: Alexx Saavedra MD 03/21/2025 01:28 PM EDT RP Mental Status Exam Mental Status Exam Patient Orientation: Person, Place, Time and Situation Level of Consciousness: Awake and Alert Patient Behavior: Appropriate and Talkative Mood Description: Anxious Affect Description: Anxious Speech Pattern: Clear and Pressured Hallucinations: None Thought Process: Intact Thought Content: positive for Circumstantial and positive for Tangential Judgement: Fair Medications Medications Current Medications Acetaminophen (Acetaminophen 325 Mg Tablet) 650 mg PO Q6H PRN PRN Reason: Pain, Mild 1-3,fever,headache Last Admin: 03/22/25 09:53 Dose: 650 mg Amphetamine/Dextroamphetamine (Amphetamine Mixed Salts 20 Mg Tablet) 20 mg PO TID [facility] Last Admin: 03/22/25 15:12 Dose: 20 mg Artificial Tears (Artificial Tears 15 Ml Drops) 2 drop EYE-BOTH Q4H PRN PRN Reason: Dry Eyes Calcium Carbonate (Calcium Carbonate 750 Mg Tab.Chew) 750 mg PO Q4H PRN PRN Reason: Heartburn Clonidine HCl (Clonidine Hcl 0.1 Mg Tablet) 0.3 mg PO BEDTIME PRN; Protocol PRN Reason: General Anxiety Last Admin: 03/22/25 01:47 Dose: 0.3 mg Enoxaparin Sodium (Enoxaparin Sodium 40 Mg/0.4 Ml Syringe) 40 mg SUBCUT Q24H [facility] Last Admin: 03/22/25 13:03 Dose: 40 mg Ferrous Sulfate (Ferrous Sulfate 324 Mg Tablet.) 324 mg PO DAILY [facility] Last Admin: 03/22/25 09:46 Dose: 324 mg Folic Acid (Folic Acid 1 Mg Tablet) 1 mg PO DAILY [facility] Stop: 03/24/25 10:04 Last Admin: 03/22/25 09:47 Dose: 1 mg Gabapentin (Gabapentin 100 Mg Capsule) 100 mg PO TID PRN PRN Reason: anxiety/restlessness Magnesium Hydroxide (Milk Of Magnesia 30 Ml Oral.Susp) 30 ml PO DAILY PRN PRN Reason: Constipation Multivitamins/Vitamin C (Multivitamin Tablet) 1 tab PO DAILY [facility] Stop: 03/24/25 10:04 Last Admin: 03/22/25 09:46 Dose: 1 tab Omeprazole (Omeprazole 40 Mg Capsule.Dr) 40 mg PO DAILY@0630 [facility] Last Admin: 03/22/25 06:26 Dose: 40 mg Pharmacy Consult (Consult Rx Etoh Phenob Im/Po) 1 each MISCELLANE ONCE PRN; Protocol PRN Reason: Consult order Phenobarbital (Phenobarbital 15 Mg Tablet) 45 mg PO BID [facility] Stop: 03/23/25 09:01 Last Admin: 03/22/25 09:47 Dose: 45 mg Phenobarbital (Phenobarbital 15 Mg Tablet) 15 mg PO BID [facility] Stop: 03/25/25 09:01 Phenobarbital (Phenobarbital 15 Mg Tablet) 15 mg PO DAILY [facility] Stop: 03/27/25 09:01 Propranolol HCl (Propranolol Hcl 20 Mg Tablet) 60 mg PO BID PRN; Protocol PRN Reason: Social Anxiety Sertraline HCl (Sertraline Hcl 100 Mg Tablet) 100 mg PO DAILY [facility] Last Admin: 03/22/25 09:47 Dose: 100 mg Sodium Chloride (0.9 % Sodium Chloride Flush 3 Ml Syringe) 3 ml IVFLUSH QSHIFT [facility] Last Admin: 03/22/25 09:51 Dose: 3 ml Thiamine HCl (Thiamine Hcl 100 Mg Tablet) 100 mg PO DAILY [facility] Stop: 03/24/25 10:04 Last Admin: 03/22/25 09:47 Dose: 100 mg Topiramate (Topiramate 100 Mg Tablet) 200 mg PO DAILY PRN PRN Reason: weight loss Allergies Allergies Allergy/AdvReac Type Severity Reaction Status Date / Time bee pollen (BEE STINGS) Allergy Unknown HIVES Verified 03/21/25 06:14 Assessment & Plan Assessment & Plan (1) Alcohol use disorder, severe, dependence: Status: Acute Code(s): F10.20 - Alcohol dependence, uncomplicated Assessment and Plan: acute withdrawal, well managed l--pheno taper in place gabapentin 100mg TID PRN for anxiety and restlessness continue thiamine and folic acid following d/c transporter radiology to follow up regarding additional supports Total time managing care of this patient today __30__ minutes. PMFSH Past Medical History Medical History (Updated 03/22/25 @ 16:46 by Melvin Brown MD) Depression Anxiety ADHD Family History Family History Mother No problems noted. Father No problems noted. Social History Social History Household Members: Spouse and Children Housing: House Alcohol intake: never Patient Tobacco Use Status: Current everyday Tobacco user Tobacco use type: Cigarette Cigarette Packs Per Day: 0.5 Cigarettes Per Day: 10.0 e-Cigarette/Vaping Use: Currently Using Substance Use Type: Marijuana
[2025-03-22] MEDS: Artificial Tears 15 ML DROPS 2 DROP EYE-BOTH (17:04)
--- NOTE | 2025-03-22 18:06 | MHC.RECOVRN ---
TW met with the patient to discuss current alcohol use and concerns related to increased risk of alcohol related problems. Patient reports consuming vodka ?from morning to night? since September of this year. She also reports she has not been eating for about 1 week. Discussed how alcohol use has impacted health, including negative impact on mental health and overall physical well being. Discussed risk and reduction strategies including drinking below the recommended limit, eating before drinking alcohol, and drinking water between beverages containing alcohol. Provided pt with written resources including information on inpatient and outpatient treatment, TONYA, harm reduction and recovery coaching.? Patient expressed interest in possibly starting TONYA but wanted some time ?to think about it?. Pt declines intervention, TONYA, or outpatient appt for treatment related to AUD at this time. Pt was provided with TW?s contact information if questions or concerns arise. Pt denies further questions or concerns at this time.? TW will meet with pt in the morning to review desire for TONYA and other treatment options.
[2025-03-23 03:26] VITALS: BP 120/82; PULSE 73; RESP 18; TEMP 36.1; O2SAT 100
[2025-03-23 06:37] LABS: Hematocrit 33.5 % (37.0-47.0); Hemoglobin 11.6 g/dl (12.0-16.0); Mean Corpuscular HGB Conc 34.6 g/dl (31.0-35.0); Mean Corpuscular Hemoglobin 36.4 pg (27.0-33.0); Mean Corpuscular Volume 105.0 fL (80.0-98.0); NRBC Abs Auto 0.040 X10*3/uL (0.0-0.012); Platelet Count 144 X10*3/uL (160-400); Red Blood Count 3.19 X10*6/uL (4.20-5.50); White Blood Count 4.2 X10*3/uL (4.8-10.8)
[2025-03-23 06:40] LABS: NRBC Pct Auto 1.0 /100WBC (0.0-0.2)
[2025-03-23 06:52] LABS: Anion Gap 14 (12-20); Blood Urea Nitrogen 5 mg/dL (9-16); Calcium 8.7 mg/dL (8.4-10.2); Carbon Dioxide 22 mmol/L (22-29); Chloride 108 mmol/L (96-108); Creatinine Clr Calc Pharmacy 122.2; Estimated Glomerular Filt Rate > 60; Magnesium 1.6 mg/dL (1.6-2.6); Potassium 4.0 mmol/L (3.3-5.1); Sodium 140 mmol/L (135-145)
[2025-03-23 07:49] VITALS: BP 111/76; PULSE 86; RESP 18; TEMP 36.5; O2SAT 100
[2025-03-23] MEDS: Ferrous Sulfate 324 MG TABLET.DR PO (08:01)
[2025-03-23] MEDS: 0.9 % Sodium Chloride Flush 3 ML SYRINGE IVFLUSH (08:05)
[2025-03-23] MEDS: Amphetamine Mixed Salts 20 MG TABLET PO ×2 (09:33→15:10)
[2025-03-23 11:50] VITALS: BP 120/86; PULSE 80; RESP 18; TEMP 36.7; O2SAT 98
--- NOTE | 2025-03-23 13:33 | MHC.CM.PN ---
pt. to DC this afternoon, she will go home via private transport, plan is self care.
--- NOTE | 2025-03-23 14:07 | MHC.RECOVRN ---
TW met with pt in to offer continued support in relation to AUD. Pt was sitting in bed, watching tv in no apparent distress. Pt was pleasant, calm and engaged during assessment. She reports feeling so much better and endorses utilizing gabapentin PRN early this morning. it has worked wonders, really . Pt reports she asked the covering doctor to continue gabapentin dosage at discharge. She states she plans to follow up with her PCP for continued management. Pt reports she was able to finally begin writing again. journaling is a coping skill of mine that I let go for quite awhile. It so nice to get back to it . TW asked pt is she was interested in TONYA or recovery/support options and pt responded, I can't take a medication to treat this. I have oppositional defiant disorder. The minute you tell me I cn;t do something I;m going to do it . Pt was educated on safer drinking strategies such as drinking below the legal limit, the importance of eating prior to consumption and drinking water between beverages containing alcohol. Pt declines output treatment for AUD at this time. TW provided pt w/ contact information and is available for questions, concerns, or continued support.
[2025-03-23 16:00] VITALS: BP 125/93; PULSE 82; RESP 18; TEMP 36.4; O2SAT 98
--- NOTE | 2025-03-23 16:32 | P.DS_ITS ---
DS: Providers Provider Date of Service: 03/23/25 Date of admission: 03/21/25 09:19 Date of discharge: 03/23/25 Primary care physician: Marco Allison MD Consults: 03/21/25 10:11 Addiction Medicine Provider Routine Consulting Provider: Addiction Covering Reason for consultation: AUD 03/22/25 11:34 Consult to Neurology Routine Consulting Provider: [facility] Reason for consultation: Right hand numbness, difficulty grasping DS: Diagnosis Discharge Diagnosis (1) Alcohol use disorder, severe, dependence: Status: Acute DS: Summary Hospital Course Hospital Course: From admission HPI: Date of Service: 03/21/25 Attending physician on admission: Luis Alberto Hyde Chief Complaint: Clenched fists Pt is a 44-year-old female with a PMH significant for alcohol use disorder, anxiety, and depression?who presents to the ED with?clenched fists and muscle aches and numbness. Pt reports she was awoken at 05:00 this morning and found that her hands were clenched and she was unable to open them. Also experienced numbness and tingling in both extremities, increased anxiety, all-over muscle cramps, tremors, and diaphoresis. Some nausea and vomiting, no significant abdominal pains. Denies tonic-clonic seizure-type activity. Pt reports she has been drinking heavily for the past few months due to life stressors including the passing of her mother two weeks ago. Has been drinking from morning to night. Abruptly stopped drinking Friday night. Denies hx of alcohol withdrawal. No auditory visual hallucinations, or tactile disturbances. Reports feels overall weak. No chest pain/pressure. Denies shortness or breath or difficulty breathing. In the ED pt was tachycardic up to 107, vitals otherwise stable. Labs were significant for potassium 2.7, anion gap 27, magnesium 1.4 bilirubin 2.1, AST 498, and ALT 157. Ethyl alcohol level 15. Pt was treated in the ED with diazepam, Mag sulfate, IVF, potassium chloride, and started on phenobarb protocol. Pt is admitted to the hospital for treatment and further evaluation of electrolyte abnormalities in the setting of acute alcohol withdrawal. Hospital Course: Pt was admitted to the hospital for electrolyte abnormalities and polyneuropathy in the setting of acute alcohol withdrawal. Hypokalemia and hypomagnesemia were replenished and stabilized, and pt was treated with phenobarb protocol for a lcohol withdrawal. Hospital course was uncomplicated and pt responded well to therapy and has been scoring low on CIWA for the past 24+ hours. LFTs elevated at presentation but improving. Pt will be discharged on Daily multivitamin, thiamine, and folic acid. Pt is strongly encouraged to abstain from alcohol and use familial, social, and community support to maintain sobriety. Pt was seen and evaluated by Neurology for continued right upper extremity numbness and tingling. Neurology thought likely secondary to compression at the elbow, and recommended outpatient nerve conduction/EMG study of right upper extremity. Pt also be discharged on gabapentin 100 mg t.i.d. p.r.n. for neuropathic pain. Patient's LFTs were noted to be elevated, likely secondary to alcohol use disorder. Pt was asymptomatic and LFTs or improving, the pt should follow up with PCP for repeat labs in 1-2 weeks. For ADHD continue Adderall. For HTN continue propranolol For mood disorder continue clonidine and sertraline. Time Attestation Discharge Coordination Time (in mins): 37 Quality: Safe Use of Opioids Does Pt have an Active Cancer Diagnosis on the Problem List?: No Quality: Stroke Does the patient have a stroke diagnosis?: No Physical Exam Exam: Exam: General: AOx3, no acute distress Resp: CTA bilaterally CVS: S1, S2, RRR GI: +BS, NT, no distention Skin: Warm, dry Neuro: Cranial nerves II-XII grossly intact bilaterally. Motor grossly intact bilaterally Extremities: No edema Psych: Appropriate affect Vital Signs: Vital Signs: Last Vital Signs Temp 97.5 F 03/23/25 16:00 Pulse 82 03/23/25 16:00 Resp 18 03/23/25 16:00 BP 125/93 H 03/23/25 16:00 Pulse Ox 98 03/23/25 16:00 O2 Del Method Room Air 03/23/25 16:00 BMI result Body Mass Index 30.3 DS: Data Data Completed and Pending Labs on day of discharge: Laboratory Results - last 24 hr 03/23/25 06:28 WBC 4.2 L RBC 3.19 L Hgb 11.6 L Hct 33.5 L MCV 105.0 H MCH 36.4 H MCHC 34.6 RDW 15.0 Plt Count 144 L MPV 10.8 Absolute Nucleated RBC 0.040 H Nucleated RBC % (auto) 1.0 H Sodium 140 Potassium 4.0 Chloride 108 Carbon Dioxide 22 Anion Gap 14 BUN 5 L Creatinine 0.61 Estim Creat Clear Calc 122.2 Estimated GFR > 60 Random Glucose 114 Calcium 8.7 D Magnesium 1.6 Discharge Plan Discharge Anticipated Discharge Date/Time: 03/23/25 17:30 Patient Disposition: Home, Self-Care Discharge Diagnosis: Acute alcohol withdrawal Referrals: Marco Allison MD [Primary Care Provider, Internal Medicine] - 1 Week Melvin Brown MD [Physician, Neurology] - 1 Week Referral Note: F/U for ulnar neuropathy of right upper extremity. Discharge Medications: New gabapentin 100 mg capsule 100 mg PO TID PRN (Reason: Neuropathic Pain) Qty: 90 0RF Rx Instructions: Take one capsule up to three times a day for neuropathic pain. multivitamin Tablet 1 tab PO DAILY Qty: 90 0RF Rx Instructions: Take one capsule daily magnesium oxide 200 mg magnesium tablet 200 mg PO BID Qty: 90 0RF Rx Instructions: Take one tablet twice a day folic acid 1 mg tablet 1 mg PO DAILY Qty: 90 0RF Rx Instructions: Take one capsule daily thiamine HCl (vitamin B1) 100 mg tablet 100 mg PO DAILY Qty: 90 0RF Rx Instructions: Take one capsule daily Continued clonidine HCl 0.3 mg tablet 0.3 mg PO BEDTIME PRN (Reason: General Anxiety) sertraline 100 mg tablet 100 mg PO DAILY propranolol 60 mg tablet 60 mg PO BID PRN (Reason: Social Anxiety) dextroamphetamine-amphetamine 20 mg tablet 20 mg PO TID topiramate 200 mg tablet 200 mg PO DAILY PRN (Reason: weight loss) ferrous sulfate [iron] 325 mg (65 mg iron) Tablet 325 mg PO DAILY Discharge Orders: Discharge Order (Routine); Ordered 03/23/25 Ordered By: Katerina Bennett Activity on Discharge: As tolerated Stand Alone Forms: Patient Portal Discharge page Print Language: [place] Care Plan Goals: See below Health Concerns: Alcohol use disorder Alcohol withdrawal Electrolyte abnormalities Right upper extremity neuropathy Plan of Treatment: You were admitted to the hospital for electrolyte abnormalities and upper extremity neuropathy in the setting of acute alcohol withdrawal. You were treated with phenobarb protocol and had your electrolytes replenished. You are also seen by Addiction Medicine and Neurology for upper extremity neuropathy. You are strongly encouraged to abstain from alcohol use. Urine encouraged to use social and community resources available to you. Take multivitamin, thiamine, and folic acid daily. Take magnesium oxide twice a day Follow up with PCP in 1-2 weeks for routine follow up and routine labs to monitor electrolytes and LFTs For ulnar neuropathy of right upper extremity, follow up outpatient with Dr. Brown in Neurology for nerve conduction/EMG study of right upper extremity For neuropathic pain, take gabapentin 100 mg up to 3 times daily as needed. Assessment: See discharge summary Discharge Date/Time: 03/23/25 17:26
--- NOTE | 2025-03-27 07:13 | P.CDIM_ITS ---
PROVIDER RESPONSE TEXT: To clarify, the appropriate diagnosis supported by the clinical indicators: Pancytopenia: Probable QUERY TEXT: PHYSICIAN'S DOCUMENTATION REQUEST Date of Query: 03/22/2025 08:45 AM EDT Patient Name: JAN Jules Admit Date: 03/21/2025 Dear Katerina MOONEY, A review of the medical record indicates additional documentation may be needed. Please review below and update the documentation accordingly. Clinical Indicators: LABS: WBC 2.9 L RBC 3.02 L PLT 152 L Hospitalized for alcohol abuse in withdrawals requiring phenobarb protocol. Based on the above, is there a diagnosis that correlates with these findings? Pancytopenia possible, probable, suspected, etc. Other etiology of lab findings Other (explain) Clinically unable to determine (explain) Thank you, Aydee Cintron, CCS, CDIS Use of terms such as suspected, likely, concern for, or probable (associated with a specific diagnosis that is being evaluated, monitored, or treated as if it exists) are acceptable and can be coded in the inpatient setting, when documented at the time of discharge. Please use your independent medical judgment in providing your response. THIS QUERY IS PART OF THE PERMANENT MEDICAL RECORD
== END 2025-03-23 17:26 | disposition home or self-care (01) | DRG 897 ==
LOC: HO.ED 07:02 → HO.EDOVER 09:23 → HO.S3 13:55 → HO.EDOVER 14:46 → HO.IMC 18:51
PROVIDERS: Admitting Provider Student in an Organized Health Care Education/Training Program; Emergency Provider Emergency Medicine; PCP Family Medicine; Visit Provider Student in an Organized Health Care Education/Training Program
DX: F10.239 Alcohol dependence with withdrawal, unspecified (principal); D61.818 Other pancytopenia; Y90.0 Blood alcohol level of less than 20 mg/100 ml; I10 Essential (primary) hypertension; E87.6 Hypokalemia; E83.42 Hypomagnesemia; G56.21 Lesion of ulnar nerve, right upper limb; F90.9 Attention-deficit hyperactivity disorder, unspecified type; F17.210 Nicotine dependence, cigarettes, uncomplicated; Z71.6 Tobacco abuse counseling; Z79.899 Other long term (current) drug therapy
CPT/HCPCS: 36415; 76705; 80048; 80053; 80307; 83735; 85025; 85027; 94640; 99285; J1650; J2405; J2470; J2560; J3360; J3475; J3480; J7120; S9485

== ENCOUNTER 2025-03-21 09:19 | Outpatient (BNV) | payer OTHER, SELFPAY | END 2025-03-21 12:45 | PROVIDERS: Admitting Provider Student in an Organized Health Care Education/Training Program; Emergency Provider Emergency Medicine; PCP Family Medicine; Visit Provider Radiology Diagnostic Radiology | DX: R16.0 Hepatomegaly, not elsewhere classified (principal) | CPT/HCPCS: 76705 ==

== ENCOUNTER → 2025-03-21 09:19 | Outpatient (BNV) | payer OTHER, SELFPAY | PROVIDERS: Admitting Provider Student in an Organized Health Care Education/Training Program; Emergency Provider Emergency Medicine; PCP Family Medicine; Visit Provider Student in an Organized Health Care Education/Training Program | DX: F10.930 Alcohol use, unspecified with withdrawal, uncomplicated (principal) | CPT/HCPCS: 99223; 99233 ==

== ENCOUNTER → 2025-03-21 09:19 | Outpatient (BNV) | payer OTHER, SELFPAY | PROVIDERS: Admitting Provider Student in an Organized Health Care Education/Training Program; Emergency Provider Emergency Medicine; PCP Family Medicine; Visit Provider Nurse Practitioner Psychiatric/Mental Health | DX: F10.20 Alcohol dependence, uncomplicated (principal) | CPT/HCPCS: 99222 ==

== ENCOUNTER → 2025-03-21 09:19 | Outpatient (BNV) | payer OTHER, SELFPAY | PROVIDERS: Admitting Provider Student in an Organized Health Care Education/Training Program; Emergency Provider Emergency Medicine; PCP Family Medicine; Visit Provider Psychiatry & Neurology Neurology | DX: G56.21 Lesion of ulnar nerve, right upper limb (principal) | CPT/HCPCS: 99222 ==

== ENCOUNTER 2025-07-15 11:06 | Outpatient (AMB) | payer OTHER, SELFPAY ==
--- NOTE | 2025-07-15 11:08 | MHC.PC.OV ---
Vital Signs 07/15/25 11:17 Height 5 ft 5 in Weight 186 lb 2 oz BMI 31.0 BP 132/72 Blood Pressure Location Lt brachial Position Sitting Respiration 13 Pulse 78 Pulse Source Pulse Oximeter Temp 97.8 F Temp Source Oral Pulse Oximetry (%) 99 Oxygen Delivery Method Room Air Intake Visit Reasons: HDF/[facility] [place] from 03/21 RE Intake Note: New patient to [facility] and hdf from [facility] [place]. Cost Engineer Required: No Allergies bee pollen (BEE STINGS) Allergy (Unknown, Verified 07/15/25 11:30) HIVES Medication List - Last Reconciled 07/15/25 by Iram Scott, BOAT OFFICER- clonidine HCl 0.3 mg PO BEDTIME PRN dextroamphetamine-amphetamine 20 mg 20 mg PO TID ferrous sulfate (iron) 325 mg PO DAILY folic acid 1 mg PO DAILY magnesium oxide 200 mg PO BID magnesium oxide mg PO methylphenidate HCl 20 mg PO TID multivitamin 1 tab PO DAILY multivitamin with folic acid 400 mcg (Daily-Castillo (with folic acid)) 1 tab PO DAILY propranolol 60 mg PO BID PRN propranolol 40 mg PO BID PRN sertraline 100 mg PO DAILY thiamine HCl (vitamin B1) 100 mg PO DAILY topiramate 200 mg PO DAILY PRN Tobacco use date assessed: 07/15/25 Dental Screening Dental Screen Date: 07/15/25 Did you have a dental visit in the last 12 months?: No Did you have a dental problem in the last 6 months where you did not have access to dental care?: No Was dental information given to patient?: Patient declined HPI HPI Comments History of Present Illness Details Luisa History of Present Illness The patient is a 44 year old female presenting to [facility] primary care. Was a pt of Dr Allison however 3 years had lapsed since her last visit as she moved to [place] to work; she is now back in this area Alcohol Use Disorder: - The patient has a past medical history of alcohol abuse disorder and reports increased drinking recently due to significant stress, including job loss and her 's injury. - She reports drinking 2 to 5 malt liquor beverages, each with 11% alcohol, over an 18-hour period daily. - She denies drinking hard alcohol or beer. - The patient was hospitalized in March 2025 for electrolyte abnormalities and polyneuropathy in the setting of alcohol withdrawal, during which her LFTs were noted to be elevated. 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 - She has an old prescription for Topamax but is afraid to take it. Polyneuropathy: - During her March 2025 hospitalization, neurology was consulted for right upper extremity numbness and tingling, which was diagnosed as compression of the elbow. - An outpatient nerve conduction/EMG study was recommended. - The patient reports that the numbness in her two fingers, which lasted for months, has since resolved. - She was prescribed gabapentin but did not take it. Anxiety: - The patient attributes her increased alcohol consumption to stressors, including the of her stepmother and two friends, and being laid off from her job. - She states her anxiety was controlled until March. Attention-Deficit/Hyperactivity Disorder : - Patient has a past medical history of ADHD. She is active w/ outside prescriber and counselor for her mental health needs. Hypertension: - Patient has a past medical history of hypertension. BP at goal on current meds. Marijuana Use: - The patient reports she smokes marijuana. - She denies any other substance use. Past Medical History - Attention-Deficit/Hyperactivity Disorder (ADHD) - Alcohol abuse disorder - Hypertension - Hospitalization in March 2025 for electrolyte abnormalities (low magnesium and potassium) and polyneuropathy secondary to alcohol withdrawal. - History of elevated LFTs - History of anemia - Sees a psychiatrist, Chante Villanueva, via virtual appointments in [place], [place] - Allergy to bee pollen and bee stings. Review of Systems - Neurological: Reports a history of numbness and tingling in the right upper extremity which has since resolved. - Psychiatric: Reports increased stress and anxiety. - Allergic/Immunologic: Reports allergy to bee pollen and bee stings. Physical Exam General: Well developed, well nourished, in no acute distress. Appears stated age. Head: Normocephalic, atraumatic. Eyes: Pupils are equal, round and reactive to light and accommodation. Conjunctivae are clear Lungs: Clear to auscultation bilaterally. No rales, rhonchi or wheeze noted. Good air flow in all sykes. Heart: Regular rate and rhythm. No murmurs, click, rubs or gallops are noted. Abdomen: Round, soft, no tenderness, liver palpable. Musculoskeletal: Joints are nontender, without swelling, redness, or effusions. Pulses: Peripheral pulses are equal and palpable bilaterally. Extremities: No clubbing, cyanosis nor edema is noted. Psych: Mood expansive, Tangential speech, pleasant and cooperative. Results - Labs (from March 2025 hospitalization): Noted for elevated LFTs, low magnesium, and low potassium, anemia. Medical Decision Making The patient is a 44-year-old female with a past medical history of alcohol use disorder, ADHD, and hypertension who presents to re-establish primary care after several years. Her primary active issue is a relapse of significant alcohol use, triggered by recent life stressors including job loss and family illness. Her history is significant for a hospitalization in March 2025 for complications of alcohol withdrawal, including polyneuropathy and severe electrolyte derangements (hypomagnesemia, hypokalemia), as well as elevated LFTs. Although her neurologic symptoms of finger numbness have resolved, her reported daily intake of 2-5 cixm-dmqntbk-dtmvnil beverages is concerning. 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 Given the recent history of abnormal lab values, it is prudent to assess her current status. The plan is to obtain labs, including a CBC and comprehensive metabolic panel, today to evaluate liver function and electrolyte status. The patient will be instructed to sign up for the patient portal to access her results, and a follow-up appointment will be scheduled with her established PCP to discuss findings and further management. Plan 1. Alcohol Use Disorder - The patient reports daily consumption of 2-5 malt liquor beverages (11% ABV). - Due to her recent hospitalization with electrolyte abnormalities and elevated LFTs, labs will be drawn today to assess her current CBC and comprehensive metabolic panel. - The patient will be instructed on how to sign up for the patient portal to receive lab results. - A follow-up appointment will be scheduled to discuss results and further management. 2. History Of Polyneuropathy - Patient reports her previously noted finger numbness has resolved. - No further neurologic workup is planned at this time; will continue to monitor for symptoms. - Etoh cessation/reduction encouraged 3. Health Maintenance - Patient is re-establishing care with the practice, patient of Dr Sawyer - The patient declined an influenza and tetanus vaccination today. - Follow-up will be scheduled with her previous provider, Dr. Allison Patient Instructions - Please stop at the front end loader driver to have your blood drawn for labs today in the clinic. - You will need to sign up for our patient portal to get your lab results. - The lab results will be sent to you electronically through the portal. - We will schedule you for a follow-up appointment to discuss your results. Consent The patient verbally agreed to undergo phlebotomy for laboratory testing. Patient was informed and verbally consented to the use of an ambient scribe for clinic note documentation during this visit. Total time spent caring for the patient today was 40 minutes. This includes time spent before the visit reviewing the chart, time spent during the visit, and time spent after the visit on documentation, reviewing laboratory results, diagnostic imaging, medications, performing a medically necessary evaluation, counseling on diagnoses, care coordination, ordering appropriate tests, ordering appropriate medications, review of tests performed by other providers, reporting test results with the patient, communication with other healthcare providers. [facility] Medical History (Updated 07/15/25 @ 11:47 by Iram Scott, [facility]) ADHD Alcohol use disorder, severe, dependence Anxiety Depression Family History (Updated 07/15/25 @ 11:08 by Rinku Jones MA) Mother No problems noted. Father No problems noted. Social History Household Members: Spouse and Children Housing: House Alcohol intake: never Patient Tobacco Use Status: Current everyday Tobacco user Tobacco use type: Cigarette Cigarette Packs Per Day: 0.5 Cigarettes Per Day: 10.0 e-Cigarette/Vaping Use: Currently Using Second Hand Smoke Exposure: No Substance Use Type: Marijuana service: No Current occupational status: unemployed Current occupational exposures/hazards: No Cognitive needs: Yes Hearing needs: No Vision needs: Yes (wear glasses) Questionnaire PHQ-9 Over the last 2 weeks, how often have you been bothered by any of the following problems? 1. Little interest or pleasure in doing things: not at all 2. Feeling down, depressed, or hopeless: not at all 3. Trouble falling or staying asleep, or sleeping too much: not at all 4. Feeling tired or having little energy: not at all 5. Poor appetite or overeating: not at all 6. Feeling bad about yourself - or that you are a failure or have let yourself or your family down: not at all 7. Trouble concentrating on things, such as reading the newspaper or watching television: not at all 8. Moving or speaking so slowly that other people could have noticed. Or the opposite - being so fidgety or restless that you have been moving around a lot more than usual: not at all 9. Thoughts that you would be better off or of hurting yourself in some way: not at all Total score: 0 Depression Screening Interpretation: Negative Depression Screening Done: Yes 07774 - PHQ-9 Billing: Yes Source: Developed by Drs. Alexx Lal, Stacy Bauer, Topher Duenas and colleagues, with an educational kay from [employer]. Thrive Questionnaire Date Thrive assessed: 07/15/25 I am a: Patient What is your living situation today?: I have a steady place to live Within the past 12 months, did the food you bought not last and you didn't have the money to get more?: Never true Within the past 12 months, did you worry whether your food would run out before you got money to buy more?: Never true Do you have trouble paying for medicines?: No Do you have trouble getting transportation to medical appointments?: No Do you have trouble paying your heating and electricity bill?: No Do you have trouble taking care of your child, family member or friend?: No Do you have trouble with day-to-day activities such as bathing, preparing meals, shopping, managing finances, etc.?: No Are you currently unemployed and looking for a job?: No Are you interested in more education?: No Please select the resources that you would like help with: None Currently or been in a relationship where the following occur: No concerns reported THRIVE Score: 0 AUDIT C Alcohol Use Questionnaire (AUDIT-C) 1. How often do you have a drink containing alcohol?: Monthly or less 2. How many drinks containing alcohol do you have on a typical day when you are drinking?: 1 or 2 3. How often do you have six or more drinks on one occasion?: Less than monthly Total Score: 2 Score Reviewed/Action Taken: Yes RENE-7 AMB Questionnaire RENE-7 Date RENE - 7 assessed: 07/15/25 Feeling nervous, anxious, or on edge: 0 = Not at all Not being able to stop or control worryin = Not at all Worrying too much about different things: 0 = Not at all Trouble relaxin = Not at all Being so restless that it is hard to sit still: 0 = Not at all Becoming easily annoyed or irritable: 0 = Not at all Feeling afraid as if something awful might happen: 0 = Not at all Total RENE-7 score (0-4 normal; 5-9 mild; 10-14 moderate; 15-21 severe): 0 Source: Developed by Drs. Alexx Lal, Stacy Bauer, Topher Duenas and colleagues, with an educational kay from [employer]. RENE-7 Assessment Billing RENE-7 Assessment Tool: RENE-7 Assessment 39219 Physical exam (Primary Care) Vital Signs: Last Vital Signs Temp 97.8 F 07/15/25 11:17 Pulse 78 07/15/25 11:17 Resp 13 07/15/25 11:17 BP 132/72 07/15/25 11:17 Pulse Ox 99 07/15/25 11:17 Oxygen Delivery Method Room Air 07/15/25 11:17 BMI result Body Mass Index 31.0 BMI Assessment/Plan discussion: High BMI High, discussed plan: lifestyle Tobacco/Smoking Status: Tobacco use Status Tobacco use date assessed 07/15/25 07/15/25 11:12 Patient Tobacco Use Status Current everyday Tobacco 07/15/25 11:09 Tobacco use type Cigarette 07/15/25 11:09 e-Cigarette/Vaping Use Currently Using 07/15/25 11:09 PHQ-9: PHQ-9 Score PHQ-9: Total score 0 07/15/25 11:12 Depression Screening Interpretation: Negative Thrive Assessment: Date of Thrive Assessment Date Thrive assessed 07/15/25 07/15/25 11:09 Currently or been in a relationship where the following occur: No concerns reported Coding Level of Care Code New Pt Level 4 (58433) Complex visit Add On G2211 Diagnoses Encounter to establish care with new provider Z76.89 Alcohol use disorder, moderate, dependence F10.20 RENE (generalized anxiety disorder) F41.1 MDD (major depressive disorder), recurrent episode, moderate F33.1 Obesity (BMI 30-39.9) E66.9 ADHD F90.9 Influenza vaccination declined Z28.21 Tetanus, diphtheria, and acellular pertussis (Tdap) vaccination declined Z28.21 Neuropathy, alcoholic G62.1 Anemia D64.9 Anemia type: other cause Electrolyte abnormality E87.8 Additional Codes RENE-7 Assessment Billing - RENE-7 Assessment Tool: RENE-7 Assessment 61683 ([id number]) PHQ-9 - 40750 - PHQ-9 Billing: Yes ([id number]) Assessment & Plan Assessment & Plan (1) Encounter to establish care with new provider: Code(s): Z76.89 - Persons encountering health services in other specified circumstances (2) Alcohol use disorder, moderate, dependence: Code(s): F10.20 - Alcohol dependence, uncomplicated Category: Medical (3) RENE (generalized anxiety disorder): Code(s): F41.1 - Generalized anxiety disorder Category: Medical (4) MDD (major depressive disorder), recurrent episode, moderate: Code(s): F33.1 - Major depressive disorder, recurrent, moderate Category: Medical (5) Obesity (BMI 30-39.9): Code(s): E66.9 - Obesity, unspecified Category: Medical (6) ADHD: Code(s): F90.9 - Attention-deficit hyperactivity disorder, unspecified type Category: Medical (7) Influenza vaccination declined: Onset Date: ~07/15/25 Code(s): Z28.21 - Immunization not carried out because of patient refusal Category: Medical (8) Tetanus, diphtheria, and acellular pertussis (Tdap) vaccination declined: Onset Date: ~07/15/25 Code(s): Z28.21 - Immunization not carried out because of patient refusal Category: Medical (9) Neuropathy, alcoholic: Code(s): G62.1 - Alcoholic polyneuropathy Category: Medical (10) Anemia: Code(s): D64.9 - Anemia, unspecified Category: Medical Qualifiers: Anemia type: other cause (11) Electrolyte abnormality: Code(s): E87.8 - Other disorders of electrolyte and fluid balance, not elsewhere classified Category: Medical Plan . Orders: Orders Complete Blood Count no Diff Today Z51.89 - Encounter for other specified aftercare Comprehensive Met. Panel Today Z51.89 - Encounter for other specified aftercare Hemoglobin A1c Today Z51.89 - Encounter for other specified aftercare Vitamin B12 and Folate Today Z51.89 - Encounter for other specified aftercare Vitamin D 25-OH Total Today Z51.89 - Encounter for other specified aftercare Magnesium Today Z51.89 - Encounter for other specified aftercare Patient Instructions: Walk-In Care (Urgent Care): We Make it Easy Walk-in for urgent medical issues such as: ? Seasonal Allergies ? Insect Bites ? Cough ? Diarrhea ? Acute Asthma Attacks ? Back, Knee or Joint Pain ? Ear Infection ? Fever without a Rash ? Headaches ? Nausea ? [place] Eye, Rash or Skin Irritation ? Sore Throat ? Sports Physicals ? Vomiting Most insurances are accepted. Patients do not need to be part of the [facility] to seek care at the walk-in clinic. Locations [address] [place] [address] Open Friday through Friday 8am-5pm *Hours may vary due to staffing availability. To confirm Walk-In Care hours please call. [facility] , [place] [address] ? [phone] [facility] Walk-In Care in [place] provides services to ages 18 and over. Open Friday-Friday: 7 a.m. to 5 p.m. and Friday: 9 a.m. to 3 p.m.* *Hours may vary due to staffing availability. To confirm Walk-In Care hours in [place], please call [phone]. [address] [place] [address] ? [phone] [facility] Walk-In Care in [place] provides services to ages 12 and over. Open Friday-Friday: 8 a.m. to 5 p.m. Hours may vary due to staffing availability. To confirm Walk-In Care hours in [place], please call [phone]. LABORATORY SERVICES: [facility] Lab ? Primary Location [address] [place] [address] Friday through Friday 6:00 AM ? 5:00 PM Friday 7:00 AM ? 11:00 AM* [phone] The [facility] Lab is centrally located near the front entrance of the [facility] for easy outpatient access. Convenient parking is provided for outpatients. *Hours may vary due to staffing availability. To confirm Laboratory hours for any location, please call [phone]. Offsite Location For your convenience, we offer offsite laboratory draw stations at the following locations: [address] [facility], [place] ? [facility] [address] [facility], [address], [place] Friday through Friday 7:30 AM ? 1:00 PM* [phone] *Hours may vary due to staffing availability. To confirm Laboratory hours for any location, please call [phone]. [place] ? [facility] [address] [facility], [place] Friday through Friday 6:00 AM ? 3:30 PM* Friday 6:30 AM ? 3 PM* [phone] *Hours may vary due to staffing availability. To confirm Laboratory hours for any location, please call [phone]. [address] [facility] Friday through Friday 7:30 AM ? 4:00 PM* [phone] *Hours may vary due to staffing availability. To confirm Laboratory hours for any location, please call [phone] [place] [address] Friday through 9:00 AM ? 4:00 PM* *Hours may vary due to staffing availability. To confirm Laboratory hours for any location, please call [phone]. Appointments are not necessary. Walk-ins are welcome. Like all the departments throughout the [facility], our Lab undergoes frequent reviews to ensure the quality and accuracy of test results, and our staff takes special pride in its status as a nationally accredited facility. Patient Portal: [facility] ONE PATIENT. ONE RECORD. BETTER CARE. [facility] has a fully integrated, cutting-edge mobile electronic health information system that has revolutionized the way we care for our patients and manage our organization. This system improves communication and coordination enabling us to provide safe, higher-quality care, and an overall positive experience for staff and patients. Our first priority, as always, is to deliver the highest quality care possible. The system is running in the background supporting that priority. This portal is for all [facility] services and practices. If you are experiencing any technical difficulties with enrolling or logging into the Patient Portal please complete the [facility] Patient Portal Technical Support Form. [facility] now offers a new secure on-line interactive tool for patients to review their health information ? ?Patient Portal. This interactive web portal will enable patients and their families to take an active role in their care by providing easy, secure access to their health information via the internet. The Patient Portal provides patients with instant access to their health information, including laboratory results, medications, allergies, demographic information, visit history, and more. In addition to managing their own care, parents and health care proxies with authorized consent will appreciate the ability to access the records of those individuals for whom they provide care. Please note: if you wish to gain access (Proxy) to another patient?s portal, you will be required to come to the Medical Records Department in person at [facility]. Both the patient giving proxy access and the proxy will need to provide photo identification and complete the appropriate authorization. The Patient Portal also allows track their appointments online. The [facility] Patient Portal also saves patients time by allowing them to submit updates to their demographic and contact information prior to their visits. Portal email notifications will also alert patients to any new activity on their portal, such as test results and new appointments. In order to initially enroll in the [facility] Patient Portal, you will need to enter some required information including the following: your [facility] Medical Record number your personal home email address name date of Please note: In order to enroll in the [facility] Patient Portal, we need to have your email address on file in your electronic medical record. ?The email address needs to be specific for one person (yourself) in order for your Portal enrollment to be successful. ?You can update your email address in person with our Registration staff when you are registering for a hospital visit. ?Otherwise, you will need to come to the Health Information Management (Medical Records) Department at [facility]. ?We are open from Friday ? Friday from 7:30 a.m. ? 4:30 p.m. ?You will be required to present a photo id. Once you have successfully enrolled in the Patient Portal, you will receive a one-time user id and password for the Portal, sent to your email address. ?This will allow you to log into the Patient Portal within 99 hrs and reset your own logon id and password, and define personal security questions. ?Once your permanent login and password have been set, you can log into the [facility] Patient Portal at any time via the blue button above or from the Portal Logon button on any page of the [facility] website. [facility] encourage all of our patients to enroll in Patient Portal as it presents a valuable opportunity for patients and their families to actively participate in their care and stay healthy Welcome to [facility]. ?We look forward to working with you.
[2025-07-15 11:17] VITALS: BP 132/72; PULSE 78; RESP 13; TEMP 36.6; O2SAT 99; BMI 31.0
== END 2025-07-15 11:46 | disposition home or self-care (01) ==
LOC: HO.HMCFM 11:07
PROVIDERS: PCP Nurse Practitioner Family; Visit Provider Nurse Practitioner Family
DX: F10.20 Alcohol dependence, uncomplicated (principal); F33.1 Major depressive disorder, recurrent, moderate; Z68.31 Body mass index [BMI] 31.0-31.9, adult; E66.9 Obesity, unspecified; D64.9 Anemia, unspecified; Z76.89 Persons encountering health services in other specified circumstances; F41.1 Generalized anxiety disorder; F90.9 Attention-deficit hyperactivity disorder, unspecified type; Z28.21 Immunization not carried out because of patient refusal; G62.1 Alcoholic polyneuropathy; E87.8 Other disorders of electrolyte and fluid balance, not elsewhere classified

== ENCOUNTER → 2025-07-15 11:06 | Outpatient (BNVA) | payer OTHER, SELFPAY | PROVIDERS: PCP Nurse Practitioner Family; Visit Provider Nurse Practitioner Family | DX: Z76.89 Persons encountering health services in other specified circumstances (principal); Z28.21 Immunization not carried out because of patient refusal; G62.1 Alcoholic polyneuropathy; F10.20 Alcohol dependence, uncomplicated; F41.1 Generalized anxiety disorder; F33.1 Major depressive disorder, recurrent, moderate; E66.9 Obesity, unspecified; F90.9 Attention-deficit hyperactivity disorder, unspecified type; D64.9 Anemia, unspecified; E87.8 Other disorders of electrolyte and fluid balance, not elsewhere classified; F12.90 Cannabis use, unspecified, uncomplicated; Z68.31 Body mass index [BMI] 31.0-31.9, adult | CPT/HCPCS: 96127 ==